=== PATIENT | male | born 1955 | race Caucasian/White ===

== ENCOUNTER → 2018-05-18 08:47 | Outpatient (CLI) | payer OTHER, SELFPAY ==
[2018-05-18 10:07] LABS: Add Manual Diff / Slide Review NO; Basophils Percent Auto 0.6 % (0-2); Eosinophils Percent Auto 3.6 % (2-4); Hematocrit 45.2 % (41-53); Hemoglobin 15.5 g/dL (13.5-17.5); Lymphocytes Percent Auto 29.7 % (25-40); Mean Corpuscular HGB Conc 34.4 % (30-36); Mean Corpuscular Hemoglobin 30.4 PG (26-34); Mean Corpuscular Volume 88.5 fL (80-100); Monocytes Percent Auto 10.4 % (3-14); Neutrophils Absolute Auto 2800 /uL (3000-5900); Neutrophils Percent Auto 55.7 % (50-75); Platelet Count 236 X10^3/uL (150-400); Red Cell Distribution Width 13.7 % (11.6-14.8)
[2018-05-18 10:15] LABS: Alanine Aminotransferase 39 IU/L (21-72); Albumin 4.4 g/dL (3.5-5.0); Albumin Globulin Ratio 1.3 (1.0-2.8); Alkaline Phosphatase 58 U/L (38-126); Aspartate Aminotransferase 32 IU/L (17-59); BUN Creatinine Ratio 19.2 (6-22); Bilirubin Total 0.8 mg/dL (0.2-1.3); Blood Urea Nitrogen 25 mg/dL (9-20); Calcium 9.5 mg/dL (8.4-10.2); Carbon Dioxide 35 mmol/L (22-32); Chloride 99 mmol/L (98-107); Cholesterol 239 mg/dL (140-199); Estimated Glomerular Filt Rate 55.6 mL/min (>60); Globulin 3.3 g/dL (1.7-4.1); Glucose 106 mg/dL (80-110); HDL Cholesterol 47 mg/dL (40-60); HEMOLYSIS < 15 (0-50); LDL Cholesterol Calculated 165 mg/dL (<100); Potassium 4.6 mmol/L (3.4-5.1); Sodium 143 mmol/L (137-145); Total Protein 7.7 g/dL (6.3-8.2); Triglycerides 133 mg/dL (35-150)
[2018-05-18 10:36] LABS: TSH w/ Reflex to FT4 2.61 uIU/mL (0.47-4.68)
[2018-05-18 10:40] LABS: Prostate Specific Antigen Scrn 1.61 ng/mL (0.1-4.0)
== END ==
PROVIDERS: Family Provider Family Medicine; PCP Family Medicine; Visit Provider Family Medicine
DX: E34.9 Endocrine disorder, unspecified (principal); E78.00 Pure hypercholesterolemia, unspecified; I10 Essential (primary) hypertension; Z12.5 Encounter for screening for malignant neoplasm of prostate
CPT/HCPCS: 36415; 80053; 80061; 84443; 85025; G0103

== ENCOUNTER → 2018-05-25 11:40 | Outpatient (CLI) | payer OTHER, SELFPAY | PROVIDERS: PCP Family Medicine; Visit Provider Family Medicine | DX: E34.9 Endocrine disorder, unspecified (principal) | CPT/HCPCS: 36415; 84403 ==

== ENCOUNTER 2018-12-01 09:00 | Outpatient (RCR) | payer MEDICARE, OTHER, SELFPAY ==
--- NOTE | 2018-11-02 17:00 | PT.OPPOC ---
Current Diagnoses Achilles tendinitis, left leg (11/02/18) Provider Visit Care Team Role Provider Type Russell Yancey MD Family Provider Physician Primary Care Provider Specialty: Family Practice Address: [address] [place] [address], [id number] Email: [email or web address] Debbie Krueger DPM Attending Provider Physician Specialty: Podiatry Address: [address] [place] [address], [id number] Email: [email or web address] PT-OP-T Assessment and Plan Start: 11/02/18 13:34 Freq: Status: Active Protocol: Document 11/02/18 13:36 EA (Rec: 11/02/18 13:42 EA [id number]) Physical Therapy Assessment Rehab Potential Rehabilitation Potential Good Evaluation Complexity Number of Personal Factors/Comorbidities 1-2 Number of Body Systems Impaired 1-2 Clinical Presentation at Evaluation Stable Impairments Impairments Activity Tolerance Gait Pain ROM Soft Tissue Mobility Strength Goals Four Impairment Impaired gait Senior Care Goal (LTG) Patient would show improved left push off to improve gait. LTG Duration 4 wks Three Impairment Foot Ankle Ability Measure ( FAAM) Dry Heat Cabinet Attendant Goal (LTG) FAAM score of > 65 LTG Duration 5 wks Two Impairment Lower extremity functional scale (LEFS) 62/80 Dry Heat Cabinet Attendant Goal (LTG) LEFS score of > 65 LTG Duration 5 wks One Impairment No HEP in place Senior Care Goal (LTG) Pt will demonstrate indep HEP. LTG Duration 4 wks Assessment Summary Assessment Pleasant 63 y/o F patient with a referring diagnosis of left achilles tendonitis. Today patient exhibited slight gait difficulty on even ground and steps descent due to pain on left foot. Assessment reveals tightness to both calves, tender to palpate at heel cord origin attachment, slight decreased of foot arch but corrected with the use of foot arch support. Patient's foot dysfunction limits his ability to perform activities that requires distance ambulation and stairs navigation, therefore, in my professional opinion patient would require skilled PT to improve function . Physical Therapy Plan Frequency and Duration Frequency of Treatment 2x/Week Duration of Treatment 8 wks Plan of Care Start Date 11/02/18 Plan of Care End Date 12/28/18 Therapeutic Interventions Therapeutic Interventions Home Exercise Program Joint Mobilizations Manual Therapy Patient/Caregiver Education Self-Care/Home Management Soft Tissue Mobilization Taping Therapeutic Exercises Modalities Cold Pack/Ice Massage Electric Stimulation Hot Packs Iontophoresis Ultrasound Next Visit Focus/Plan Next Note Type Treatment Note Next Visit Plan Provide HEP, decrease symptoms Plan of Care Dates Plan of Care Start Date 11/02/18 Plan of Care End Date 12/28/18 Please Sign and Return: I have reviewed this Plan of Care and certify that the skilled therapy services above are required to meet the patient?s needs. Physician Signature Date Printed Name and Credentials Clinical Instructor Signature Printed Name and Credentials
--- NOTE | 2018-11-02 17:00 | PT.OIE ---
Current Diagnoses Achilles tendinitis, left leg (11/02/18) Past Medical History (Last Updated 05/24/18 @ 16:01 by My Gómez) Chronic back pain (Chronic ~2004) Hypertension (Chronic ~2001) Kidney stones (Chronic) Shoulder pain (Chronic ~2003) Chicken pox (Resolved ~1964) Fractures (Resolved) Measles (Resolved ~1960) Mumps (Resolved ~1962) Past Surgical History (Last Updated 05/24/18 @ 16:01 by My Gómez) History of vasectomy (~1992) Provider Visit Care Team Role Provider Type Russell Yancey MD Family Provider Physician Primary Care Provider Specialty: Family Practice Address: [address] [place] [address], [address] Email: [email or web address] Debbie Krueger DPM Attending Provider Physician Specialty: Podiatry Address: [address] [place] [address], [phone] Email: [email or web address] Physical Therapy Initial Evaluation PT-OP-A Visit Information Start: 11/02/18 13:34 Freq: Status: Active Protocol: Document 11/02/18 13:36 EA (Rec: 11/02/18 13:42 EA [id number]) Out-Patient Physical Therapy Visit Information Visit Information Visit Type Initial Evaluation PT-OP-B Current Condition Start: 11/02/18 13:34 Freq: Status: Active Protocol: Document 11/02/18 17:00 EA (Rec: 11/03/18 07:36 EA [id number]) Current Condition History of Current Condition Onset Date September/2018 Current Complaints Left inner heel pain History of Current Condition Present complaint of left heel pain immediately occurred while in the last few minutes of long walk without history of injury. Patient reports did not use foot orthotics during that day in which he usually wear. He reports ICE and elevation was applied after that day but pain re- appeared in the the morning and feels decreased once mobilized. Pt went to his doctor with no X-ray no diagnostic imaging performed. Since then patient uses foot orthotics and places tensor support to calf area and feels it improves a bit. Prior Treatments and Tests None identified Future Testing and Treatments Planned None identified Treatment Goals Patient/Caregiver Goals Patient wants to completely eliminated pain. Prior Functional Status Baseline Function- ADL's Independent Baseline Function- Mobility Independent Baseline Function- Gait No limitation Baseline Function- Work/School Retired Baseline Function- Recreation/Hobbies Likes to walk on trails and flat ground Current Functional Impairments (Reported) Functional Limitations- ADL's Independent Functional Limitations- Mobility/Gait Limited with long distance ambulation and uneven surfaces Functional Limitations- Work/School Retired Functional Limitations- Recreation/ Unable to walk more than > 30 Hobbies minutes due to increased of pain PT-OP-C Subjective Start: 11/02/18 13:34 Freq: Status: Active Protocol: Document 11/02/18 17:00 EA (Rec: 11/03/18 07:36 EA [id number]) OP-PT Subjective Patient Comments Patient Comments Pt states would like to eliminate heel pain and back to normal mobility. Patient Reported Progress Improving Patient Questionnaires Foot & Ankle Ability Measure- ADL and Sports FAAM-ADL Score 60 FAAM-ADL Impairment 20 to 39% Impaired (Score 50- 66) Lower Extremity Functional Scale LEFS Score 62 LEFS Impairment 20 to 39% Impaired (Score 48- 62) OP-PT Pain Assessment Pain Assessment Grid Paper Pain Assessment Grid Completed Yes Location Left Lateral Heel Pain Location Details left heel cord Scale Used Numeric (1 - 10) Description Tender Tightness Frequency Intermittent Pain Aggravating Factors Activity Exercise Walking Stair Climbing Patient Stated Pain Goal 0 PT-OP-D Balance Start: 11/02/18 13:34 Freq: Status: Active Protocol: Document 11/02/18 17:00 EA (Rec: 11/03/18 07:36 EA [id number]) Balance Tests Single Limb Standing Single Limb- Right > 15 secs Single Limb- Left < 15 secs PT-OP-E Functional Tests Start: 11/02/18 13:34 Freq: Status: Active Protocol: Document 11/02/18 17:00 EA (Rec: 11/03/18 07:39 EA [id number]) Functional Tests Other 1 Name of Test Heels and toes walk Comment Mild difficulty with toe walks to left side PT-OP-G Mobility & Gait Start: 11/02/18 13:34 Freq: Status: Active Protocol: Document 11/02/18 17:00 EA (Rec: 11/03/18 07:36 EA [id number]) OP Gait Assessment Comments Gait Comments Very slight antalgic and decreased push off to left foot PT-OP-J Posture/Palpation/Skin Start: 11/02/18 13:34 Freq: Status: Active Protocol: Document 11/02/18 17:00 EA (Rec: 11/03/18 07:36 EA [id number]) Posture Evaluation Position Standing Ankle/Foot Posture (L) Pronated (L) Calcaneal Eversion Foot Arch (L) Medium Arch (R) Medium Arch Palpation Assessment Location One Palpation Location Left inner heel cor calcaneal attachment Palpation Findings Tenderness PT-OP-K Range of Motion Start: 11/02/18 13:34 Freq: Status: Active Protocol: Document 11/02/18 17:00 EA (Rec: 11/03/18 07:39 EA [id number]) Ankle and Foot Goniometric Range of Motion Ankle and Foot ROM Limitations ROM Limitations Soft Tissue Tightness Comments Moderate tightness to both calves PT-OP-L Special Tests Start: 11/02/18 13:34 Freq: Status: Active Protocol: Document 11/02/18 17:00 EA (Rec: 11/03/18 07:36 EA [id number]) Special Tests Foot/Ankle Special Tests Angelo Test Results - Talor Tilt Test Results - PT-OP-M Strength Start: 11/02/18 13:34 Freq: Status: Active Protocol: Document 11/02/18 17:00 EA (Rec: 11/03/18 07:36 EA [id number]) Ankle/Foot Strength Ankle and Foot Manual Muscle Testing Right Dorsiflexion (L4) 5 Normal Plantarflexion (S1) 5 Normal Inversion 5 Normal Eversion (S1) 5 Normal Comments Able to walk on heel and toes with no pain. Left Dorsiflexion (L4) 5 Normal Plantarflexion (S1) 4+ Good+ Inversion 5 Normal Eversion (S1) 5 Normal Comments Able to walk on heel and toes but increased in pain PT-OP-Q Treatments Start: 11/02/18 13:34 Freq: Status: Active Protocol: Document 11/02/18 13:36 EA (Rec: 11/02/18 13:42 EA [id number]) Manual Therapy Treatment Soft Tissue Mobilization 1 Body Location left lat AT Mobilization Type Cross-Friction Intensity/Depth Moderate Body Position Prone Self-Care/Home Management Treatment Education Patient Education Home Exercise Program Pain Management Caregiver Education Discussed activities progression. PT-OP-R Modalities Start: 11/02/18 13:34 Freq: Status: Active Protocol: Document 11/02/18 13:36 EA (Rec: 11/02/18 13:42 EA [id number]) Ultrasound Therapy Treatment Left Lower Posterior Foot Treatment Duration (minutes) 8 Patient Position Prone Coupling Medium Ultrasound Gel Frequency Setting (mHz) 3 Mode Setting Continuous Intensity Setting (w/cm2) 1 PT-OP-T Assessment and Plan Start: 11/02/18 13:34 Freq: Status: Active Protocol: Document 11/02/18 13:36 EA (Rec: 11/02/18 13:42 EA [id number]) Physical Therapy Assessment Rehab Potential Rehabilitation Potential Good Evaluation Complexity Number of Personal Factors/Comorbidities 1-2 Number of Body Systems Impaired 1-2 Clinical Presentation at Evaluation Stable Impairments Impairments Activity Tolerance Gait Pain ROM Soft Tissue Mobility Strength Goals Four Impairment Impaired gait Longterm Goal (LTG) Patient would show improved left push off to improve gait. LTG Duration 4 wks Three Impairment Foot Ankle Ability Measure ( FAAM) Drum Plater Goal (LTG) FAAM score of > 65 LTG Duration 5 wks Two Impairment Lower extremity functional scale (LEFS) 62/80 Longterm Goal (LTG) LEFS score of > 65 LTG Duration 5 wks One Impairment No HEP in place Longterm Goal (LTG) Pt will demonstrate indep HEP. LTG Duration 4 wks Assessment Summary Assessment Pleasant 63 y/o F patient with a referring diagnosis of left achilles tendonitis. Today patient exhibited slight gait difficulty on even ground and steps descent due to pain on left foot. Assessment reveals tightness to both calves, tender to palpate at heel cord origin attachment, slight decreased of foot arch but corrected with the use of foot arch support. Patient's foot dysfunction limits his ability to perform activities that requires distance ambulation and stairs navigation, therefore, in my professional opinion patient would require skilled PT to improve function . Physical Therapy Plan Frequency and Duration Frequency of Treatment 2x/Week Duration of Treatment 8 wks Plan of Care Start Date 11/02/18 Plan of Care End Date 12/28/18 Therapeutic Interventions Therapeutic Interventions Home Exercise Program Joint Mobilizations Manual Therapy Patient/Caregiver Education Self-Care/Home Management Soft Tissue Mobilization Taping Therapeutic Exercises Modalities Cold Pack/Ice Massage Electric Stimulation Hot Packs Iontophoresis Ultrasound Next Visit Focus/Plan Next Note Type Treatment Note Next Visit Plan Provide HEP, decrease symptoms
--- NOTE | 2018-11-12 10:41 | PT.OTN ---
Current Diagnoses Achilles tendinitis, left leg (11/12/18) Physical Therapy Treatment Note PT-OP-A Visit Information Start: 11/02/18 13:34 Freq: Status: Active Protocol: Document 11/12/18 10:32 EA (Rec: 11/12/18 10:41 EA [id number]) Out-Patient Physical Therapy Visit Information Visit Information Visit Type Treatment Note Visit Start Time 09:00 Visit Stop Time 09:53 Total Visit Minutes 53 Visit Number 2 PT-OP-B Current Condition Start: 11/02/18 13:34 Freq: Status: Active Protocol: Document 11/02/18 17:00 EA (Rec: 11/03/18 07:36 EA [id number]) Current Condition History of Current Condition Onset Date 1st week september/2018 Current Complaints Left inner heel pain History of Current Condition Present complaint of left heel pain immediately occurred while in the last few minutes of long walk without history of injury. Patient reports did not use foot orthotics during that day in which he usually wear. He reports ICE and elevation was applied after that day but pain re- appeared in the the morning and feels decreased once mobilized. Pt went to his doctor with no X-ray no diagnostic imaging performed. Since then patient uses foot orthotics and places tensor support to calf area and feels it improves a bit. Prior Treatments and Tests None identified Future Testing and Treatments Planned None identified Treatment Goals Patient/Caregiver Goals Patient wants to completely eliminated pain. Prior Functional Status Baseline Function- ADL's Independent Baseline Function- Mobility Independent Baseline Function- Gait No limitation Baseline Function- Work/School Retired Baseline Function- Recreation/Hobbies Likes to walk on trails and flat ground Current Functional Impairments (Reported) Functional Limitations- ADL's Independent Functional Limitations- Mobility/Gait Limited with long distance ambulation and uneven surfaces Functional Limitations- Work/School Retired Functional Limitations- Recreation/ Unable to walk more than > 30 Hobbies minutes due to increased of pain PT-OP-C Subjective Start: 11/02/18 13:34 Freq: Status: Active Protocol: Document 11/12/18 10:32 EA (Rec: 11/12/18 10:41 EA [id number]) OP-PT Subjective Patient Comments Patient Comments Pt reports left heel cord is sore after 40 mins of walk 2 days ago. PT-OP-D Balance Start: 11/02/18 13:34 Freq: Status: Active Protocol: Document 11/02/18 17:00 EA (Rec: 11/03/18 07:36 EA [id number]) Balance Tests Single Limb Standing Single Limb- Right > 15 secs Single Limb- Left < 15 secs PT-OP-E Functional Tests Start: 11/02/18 13:34 Freq: Status: Active Protocol: Document 11/02/18 17:00 EA (Rec: 11/03/18 07:39 EA [id number]) Functional Tests Other 1 Name of Test Heels and toes walk Comment Mild difficulty with toe walks to left side PT-OP-G Mobility & Gait Start: 11/02/18 13:34 Freq: Status: Active Protocol: Document 11/02/18 17:00 EA (Rec: 11/03/18 07:36 EA [id number]) OP Gait Assessment Comments Gait Comments Very slight antalgic and decreased push off to left foot PT-OP-J Posture/Palpation/Skin Start: 11/02/18 13:34 Freq: Status: Active Protocol: Document 11/02/18 17:00 EA (Rec: 11/03/18 07:36 EA [id number]) Posture Evaluation Position Standing Ankle/Foot Posture (L) Pronated (L) Calcaneal Eversion Foot Arch (L) Medium Arch (R) Medium Arch Palpation Assessment Location One Palpation Location Left inner heel cor calcaneal attachment Palpation Findings Tenderness PT-OP-K Range of Motion Start: 11/02/18 13:34 Freq: Status: Active Protocol: Document 11/02/18 17:00 EA (Rec: 11/03/18 07:39 EA [id number]) Ankle and Foot Goniometric Range of Motion Ankle and Foot ROM Limitations ROM Limitations Soft Tissue Tightness Comments Moderate tightness to both calves PT-OP-L Special Tests Start: 11/02/18 13:34 Freq: Status: Active Protocol: Document 11/02/18 17:00 EA (Rec: 11/03/18 07:36 EA [id number]) Special Tests Foot/Ankle Special Tests Angelo Test Results - Talor Tilt Test Results - PT-OP-M Strength Start: 11/02/18 13:34 Freq: Status: Active Protocol: Document 11/02/18 17:00 EA (Rec: 11/03/18 07:36 EA [id number]) Ankle/Foot Strength Ankle and Foot Manual Muscle Testing Right Dorsiflexion (L4) 5 Normal Plantarflexion (S1) 5 Normal Inversion 5 Normal Eversion (S1) 5 Normal Comments Able to walk on heel and toes with no pain. Left Dorsiflexion (L4) 5 Normal Plantarflexion (S1) 4+ Good+ Inversion 5 Normal Eversion (S1) 5 Normal Comments Able to walk on heel and toes but increased in pain PT-OP-Q Treatments Start: 11/02/18 13:34 Freq: Status: Active Protocol: Document 11/12/18 10:32 EA (Rec: 11/12/18 10:41 EA [id number]) Cardio Equipment Treadmill Duration (Minutes) 5 Speed 2-3.2 Other uphill/downhill Gym Equipment Shuttle Recovery Unilateral Heel Raises Resistance 25# Reps/Time x 15 reps Unilateral Squats Resistance 3 cords Reps/Time x 15 reps Therapeutic Exercises Other Exercises 2 Other Exercise Name 2-4 steps down and back Side left Reps/Minutes x 10 reps x 2 sets Comments no gand support 1 Other Exercise Name The GOLD (calves) Reps/Minutes x 30SH x 2 reps each Comments bent and straight knees Manual Therapy Treatment Soft Tissue Mobilization 2 Body Location calves Mobilization Type Myofascial Release Rolling Intensity/Depth Moderate Body Position Prone 1 Body Location left lat AT Mobilization Type Cross-Friction Intensity/Depth Moderate Body Position Prone PT-OP-R Modalities Start: 11/02/18 13:34 Freq: Status: Active Protocol: Document 11/12/18 10:32 EA (Rec: 11/12/18 10:41 EA [id number]) Hot Pack/Cold Pack Treatment Cold Pack Location left heel cord Treatment Duration (minutes) 15 Patient Tolerance Good Ultrasound Therapy Treatment Left Lower Posterior Foot Treatment Duration (minutes) 8 Patient Position Prone Coupling Medium Ultrasound Gel Frequency Setting (mHz) 3 Mode Setting Continuous Intensity Setting (w/cm2) 1 PT-OP-T Assessment and Plan Start: 11/02/18 13:34 Freq: Status: Active Protocol: Document 11/12/18 10:32 EA (Rec: 11/12/18 10:41 EA [id number]) Physical Therapy Assessment Assessment Summary Assessment Tolerated treatment with mild discomfort during STM. Recommends gait self correction. Physical Therapy Plan Next Visit Focus/Plan Next Note Type Treatment Note Next Visit Plan Cont with current plan
--- NOTE | 2018-11-17 10:14 | PT.OTN ---
Current Diagnoses Achilles tendinitis, left leg (11/17/18) Physical Therapy Treatment Note PT-OP-A Visit Information Start: 11/02/18 13:34 Freq: Status: Active Protocol: Document 11/17/18 10:04 EA (Rec: 11/17/18 10:13 EA [id number]) Out-Patient Physical Therapy Visit Information Visit Information Visit Type Treatment Note Visit Start Time 09:00 Visit Stop Time 09:53 Total Visit Minutes 53 Visit Number 3 PT-OP-B Current Condition Start: 11/02/18 13:34 Freq: Status: Active Protocol: Document 11/02/18 17:00 EA (Rec: 11/03/18 07:36 EA [id number]) Current Condition History of Current Condition Onset Date 1st week of September/2018 Current Complaints Left inner heel pain History of Current Condition Present complaint of left heel pain immediately occurred while in the last few minutes of long walk without history of injury. Patient reports did not use foot orthotics during that day in which he usually wear. He reports ICE and elevation was applied after that day but pain re- appeared in the the morning and feels decreased once mobilized. Pt went to his doctor with no X-ray no diagnostic imaging performed. Since then patient uses foot orthotics and places tensor support to calf area and feels it improves a bit. Prior Treatments and Tests None identified Future Testing and Treatments Planned None identified Treatment Goals Patient/Caregiver Goals Patient wants to completely eliminated pain. Prior Functional Status Baseline Function- ADL's Independent Baseline Function- Mobility Independent Baseline Function- Gait No limitation Baseline Function- Work/School Retired Baseline Function- Recreation/Hobbies Likes to walk on trails and flat ground Current Functional Impairments (Reported) Functional Limitations- ADL's Independent Functional Limitations- Mobility/Gait Limited with long distance ambulation and uneven surfaces Functional Limitations- Work/School Retired Functional Limitations- Recreation/ Unable to walk more than > 30 Hobbies minutes due to increased of pain PT-OP-C Subjective Start: 11/02/18 13:34 Freq: Status: Active Protocol: Document 11/17/18 10:04 EA (Rec: 11/17/18 10:13 EA [id number]) OP-PT Subjective Patient Comments Patient Comments Pt reports performed trail walk and states left foot seems to be okay; states over pronation of left foot. Patient Reported Progress Improving PT-OP-D Balance Start: 11/02/18 13:34 Freq: Status: Active Protocol: Document 11/02/18 17:00 EA (Rec: 11/03/18 07:36 EA [id number]) Balance Tests Single Limb Standing Single Limb- Right > 15 secs Single Limb- Left < 15 secs PT-OP-E Functional Tests Start: 11/02/18 13:34 Freq: Status: Active Protocol: Document 11/02/18 17:00 EA (Rec: 11/03/18 07:39 EA [id number]) Functional Tests Other 1 Name of Test Heels and toes walk Comment Mild difficulty with toe walks to left side PT-OP-G Mobility & Gait Start: 11/02/18 13:34 Freq: Status: Active Protocol: Document 11/02/18 17:00 EA (Rec: 11/03/18 07:36 EA [id number]) OP Gait Assessment Comments Gait Comments Very slight antalgic and decreased push off to left foot PT-OP-J Posture/Palpation/Skin Start: 11/02/18 13:34 Freq: Status: Active Protocol: Document 11/02/18 17:00 EA (Rec: 11/03/18 07:36 EA [id number]) Posture Evaluation Position Standing Ankle/Foot Posture (L) Pronated (L) Calcaneal Eversion Foot Arch (L) Medium Arch (R) Medium Arch Palpation Assessment Location One Palpation Location Left inner heel cor calcaneal attachment Palpation Findings Tenderness PT-OP-K Range of Motion Start: 11/02/18 13:34 Freq: Status: Active Protocol: Document 11/02/18 17:00 EA (Rec: 11/03/18 07:39 EA [id number]) Ankle and Foot Goniometric Range of Motion Ankle and Foot ROM Limitations ROM Limitations Soft Tissue Tightness Comments Moderate tightness to both calves PT-OP-L Special Tests Start: 11/02/18 13:34 Freq: Status: Active Protocol: Document 11/02/18 17:00 EA (Rec: 11/03/18 07:36 EA [id number]) Special Tests Foot/Ankle Special Tests Angelo Test Results - Talor Tilt Test Results - PT-OP-M Strength Start: 11/02/18 13:34 Freq: Status: Active Protocol: Document 11/02/18 17:00 EA (Rec: 11/03/18 07:36 EA [id number]) Ankle/Foot Strength Ankle and Foot Manual Muscle Testing Right Dorsiflexion (L4) 5 Normal Plantarflexion (S1) 5 Normal Inversion 5 Normal Eversion (S1) 5 Normal Comments Able to walk on heel and toes with no pain. Left Dorsiflexion (L4) 5 Normal Plantarflexion (S1) 4+ Good+ Inversion 5 Normal Eversion (S1) 5 Normal Comments Able to walk on heel and toes but increased in pain PT-OP-Q Treatments Start: 11/02/18 13:34 Freq: Status: Active Protocol: Document 11/17/18 10:04 EA (Rec: 11/17/18 10:13 EA [id number]) Gym Equipment Shuttle Recovery Unilateral Squats Resistance 3 cords Reps/Time x 15 reps Therapeutic Exercises Other Exercises 4 Other Exercise Name Stedy to forward lunges with single hand rail support Reps/Minutes x 6 repes each side x 2 sets 3 Other Exercise Name Stairs calf raises: straight and bent knees Reps/Minutes x 15 reps each Comments Double and single 2 Other Exercise Name 2-4 steps down and back Side left Reps/Minutes x 10 reps x 2 sets Comments no gand support 1 Other Exercise Name The GOLD (calves) Reps/Minutes x 30SH x 2 reps each Comments bent and straight knees Manual Therapy Treatment Soft Tissue Mobilization 2 Body Location calves Mobilization Type Myofascial Release Rolling Intensity/Depth Moderate Body Position Prone 1 Body Location left lat AT Mobilization Type Cross-Friction Intensity/Depth Moderate Body Position Prone Manual Techniques 1 Type Manual foot pronators stretch Reps/Duration x 30 secs hold x 4 reps PT-OP-R Modalities Start: 11/02/18 13:34 Freq: Status: Active Protocol: Document 11/17/18 10:04 EA (Rec: 11/17/18 10:13 EA [id number]) Ultrasound Therapy Treatment Left Lower Posterior Foot Treatment Duration (minutes) 8 Patient Position Prone Coupling Medium Ultrasound Gel Frequency Setting (mHz) 3 Mode Setting Continuous Intensity Setting (w/cm2) 1 PT-OP-T Assessment and Plan Start: 11/02/18 13:34 Freq: Status: Active Protocol: Document 11/17/18 10:04 EA (Rec: 11/17/18 10:13 EA [id number]) Physical Therapy Assessment Assessment Summary Assessment No discomfort noted during therex including single leg calf raises. Requires cues during steady lunges to ensure plantarflex eccentric contraction. Physical Therapy Plan Next Visit Focus/Plan Next Note Type Treatment Note Next Visit Plan Progress as tolerated
--- NOTE | 2018-11-19 12:19 | PT.OTN ---
Current Diagnoses Achilles tendinitis, left leg (11/19/18) Physical Therapy Treatment Note PT-OP-A Visit Information Start: 11/02/18 13:34 Freq: Status: Active Protocol: Document 11/19/18 12:15 EA (Rec: 11/19/18 12:19 EA [id number]) Out-Patient Physical Therapy Visit Information Visit Information Visit Type Treatment Note Visit Start Time 09:00 Visit Stop Time 09:53 Total Visit Minutes 53 Visit Number 4 PT-OP-B Current Condition Start: 11/02/18 13:34 Freq: Status: Active Protocol: Document 11/02/18 17:00 EA (Rec: 11/03/18 07:36 EA [id number]) Current Condition History of Current Condition Onset Date 1st week september/2018 Current Complaints Left inner heel pain History of Current Condition Present complaint of left heel pain immediately occurred while in the last few minutes of long walk without history of injury. Patient reports did not use foot orthotics during that day in which he usually wear. He reports ICE and elevation was applied after that day but pain re- appeared in the the morning and feels decreased once mobilized. Pt went to his doctor with no X-ray no diagnostic imaging performed. Since then patient uses foot orthotics and places tensor support to calf area and feels it improves a bit. Prior Treatments and Tests None identified Future Testing and Treatments Planned None identified Treatment Goals Patient/Caregiver Goals Patient wants to completely eliminated pain. Prior Functional Status Baseline Function- ADL's Independent Baseline Function- Mobility Independent Baseline Function- Gait No limitation Baseline Function- Work/School Retired Baseline Function- Recreation/Hobbies Likes to walk on trails and flat ground Current Functional Impairments (Reported) Functional Limitations- ADL's Independent Functional Limitations- Mobility/Gait Limited with long distance ambulation and uneven surfaces Functional Limitations- Work/School Retired Functional Limitations- Recreation/ Unable to walk more than > 30 Hobbies minutes due to increased of pain PT-OP-C Subjective Start: 11/02/18 13:34 Freq: Status: Active Protocol: Document 11/19/18 12:15 EA (Rec: 11/19/18 12:19 EA [id number]) OP-PT Subjective Patient Comments Patient Comments Pt reports able to perform HEP yesterday; states less dicomfort in the morning at this time. Patient Reported Progress Improving PT-OP-D Balance Start: 11/02/18 13:34 Freq: Status: Active Protocol: Document 11/02/18 17:00 EA (Rec: 11/03/18 07:36 EA [id number]) Balance Tests Single Limb Standing Single Limb- Right > 15 secs Single Limb- Left < 15 secs PT-OP-E Functional Tests Start: 11/02/18 13:34 Freq: Status: Active Protocol: Document 11/02/18 17:00 EA (Rec: 11/03/18 07:39 EA [id number]) Functional Tests Other 1 Name of Test Heels and toes walk Comment Mild difficulty with toe walks to left side PT-OP-G Mobility & Gait Start: 11/02/18 13:34 Freq: Status: Active Protocol: Document 11/02/18 17:00 EA (Rec: 11/03/18 07:36 EA [id number]) OP Gait Assessment Comments Gait Comments Very slight antalgic and decreased push off to left foot PT-OP-J Posture/Palpation/Skin Start: 11/02/18 13:34 Freq: Status: Active Protocol: Document 11/02/18 17:00 EA (Rec: 11/03/18 07:36 EA [id number]) Posture Evaluation Position Standing Ankle/Foot Posture (L) Pronated (L) Calcaneal Eversion Foot Arch (L) Medium Arch (R) Medium Arch Palpation Assessment Location One Palpation Location Left inner heel cor calcaneal attachment Palpation Findings Tenderness PT-OP-K Range of Motion Start: 11/02/18 13:34 Freq: Status: Active Protocol: Document 11/02/18 17:00 EA (Rec: 11/03/18 07:39 EA [id number]) Ankle and Foot Goniometric Range of Motion Ankle and Foot ROM Limitations ROM Limitations Soft Tissue Tightness Comments Moderate tightness to both calves PT-OP-L Special Tests Start: 11/02/18 13:34 Freq: Status: Active Protocol: Document 11/02/18 17:00 EA (Rec: 11/03/18 07:36 EA [id number]) Special Tests Foot/Ankle Special Tests Angelo Test Results - Talor Tilt Test Results - PT-OP-M Strength Start: 11/02/18 13:34 Freq: Status: Active Protocol: Document 11/02/18 17:00 EA (Rec: 11/03/18 07:36 EA [id number]) Ankle/Foot Strength Ankle and Foot Manual Muscle Testing Right Dorsiflexion (L4) 5 Normal Plantarflexion (S1) 5 Normal Inversion 5 Normal Eversion (S1) 5 Normal Comments Able to walk on heel and toes with no pain. Left Dorsiflexion (L4) 5 Normal Plantarflexion (S1) 4+ Good+ Inversion 5 Normal Eversion (S1) 5 Normal Comments Able to walk on heel and toes but increased in pain PT-OP-Q Treatments Start: 11/02/18 13:34 Freq: Status: Active Protocol: Document 11/19/18 12:15 EA (Rec: 11/19/18 12:19 EA [id number]) Therapeutic Exercises Other Exercises 5 Other Exercise Name Cable sit to stand row Resistance 20# Reps/Minutes x12 reps x 2 4 Other Exercise Name Stedy to forward lunges with single hand rail support Reps/Minutes x 6 repes each side x 2 sets 3 Other Exercise Name Stairs calf raises: straight and bent knees Reps/Minutes x 15 reps each Comments Double and single 2 Other Exercise Name 2-4 steps down and back Side left Reps/Minutes x 10 reps x 2 sets Comments no gand support 1 Other Exercise Name The GOLD (calves) Reps/Minutes x 30SH x 2 reps each Comments bent and straight knees Manual Therapy Treatment Soft Tissue Mobilization 2 Body Location calves Mobilization Type Myofascial Release Rolling Intensity/Depth Moderate Body Position Prone 1 Body Location left lat AT Mobilization Type Cross-Friction Intensity/Depth Moderate Body Position Prone PT-OP-R Modalities Start: 11/02/18 13:34 Freq: Status: Active Protocol: Document 11/19/18 12:15 EA (Rec: 11/19/18 12:19 EA [id number]) Hot Pack/Cold Pack Treatment Cold Pack Location left heel cord Treatment Duration (minutes) 15 Patient Tolerance Good Ultrasound Therapy Treatment Left Lower Posterior Foot Treatment Duration (minutes) 8 Patient Position Prone Coupling Medium Ultrasound Gel Frequency Setting (mHz) 3 Mode Setting Continuous Intensity Setting (w/cm2) 1 PT-OP-T Assessment and Plan Start: 11/02/18 13:34 Freq: Status: Active Protocol: Document 11/19/18 12:15 EA (Rec: 11/19/18 12:19 EA [id number]) Physical Therapy Assessment Assessment Summary Assessment Pt continued to progress as to symptoms and functional mobility.1 Physical Therapy Plan Next Visit Focus/Plan Next Note Type Treatment Note Next Visit Plan advance as tolerated
--- NOTE | 2018-11-24 10:27 | PT.OTN ---
Current Diagnoses Achilles tendinitis, left leg (11/24/18) Physical Therapy Treatment Note PT-OP-A Visit Information Start: 11/02/18 13:34 Freq: Status: Active Protocol: Document 11/24/18 09:08 EA (Rec: 11/24/18 09:46 EA [id number]) Out-Patient Physical Therapy Visit Information Visit Information Visit Type Treatment Note Visit Start Time 09:00 Visit Stop Time 09:53 Total Visit Minutes 55 Visit Number 5 PT-OP-B Current Condition Start: 11/02/18 13:34 Freq: Status: Active Protocol: Document 11/02/18 17:00 EA (Rec: 11/03/18 07:36 EA [id number]) Current Condition History of Current Condition Onset Date 1st week september/2018 Current Complaints Left inner heel pain History of Current Condition Present complaint of left heel pain immediately occurred while in the last few minutes of long walk without history of injury. Patient reports did not use foot orthotics during that day in which he usually wear. He reports ICE and elevation was applied after that day but pain re- appeared in the the morning and feels decreased once mobilized. Pt went to his doctor with no X-ray no diagnostic imaging performed. Since then patient uses foot orthotics and places tensor support to calf area and feels it improves a bit. Prior Treatments and Tests None identified Future Testing and Treatments Planned None identified Treatment Goals Patient/Caregiver Goals Patient wants to completely eliminated pain. Prior Functional Status Baseline Function- ADL's Independent Baseline Function- Mobility Independent Baseline Function- Gait No limitation Baseline Function- Work/School Retired Baseline Function- Recreation/Hobbies Likes to walk on trails and flat ground Current Functional Impairments (Reported) Functional Limitations- ADL's Independent Functional Limitations- Mobility/Gait Limited with long distance ambulation and uneven surfaces Functional Limitations- Work/School Retired Functional Limitations- Recreation/ Unable to walk more than > 30 Hobbies minutes due to increased of pain PT-OP-C Subjective Start: 11/02/18 13:34 Freq: Status: Active Protocol: Document 11/24/18 09:08 EA (Rec: 11/24/18 09:46 EA [id number]) OP-PT Subjective Patient Comments Patient Comments My left heel is much feeling better;states right heel cord aggravted yesterday after miving stuff at home. Patient Reported Progress Improving PT-OP-D Balance Start: 11/02/18 13:34 Freq: Status: Active Protocol: Document 11/02/18 17:00 EA (Rec: 11/03/18 07:36 EA [id number]) Balance Tests Single Limb Standing Single Limb- Right > 15 secs Single Limb- Left < 15 secs PT-OP-E Functional Tests Start: 11/02/18 13:34 Freq: Status: Active Protocol: Document 11/02/18 17:00 EA (Rec: 11/03/18 07:39 EA [id number]) Functional Tests Other 1 Name of Test Heels and toes walk Comment Mild difficulty with toe walks to left side PT-OP-G Mobility & Gait Start: 11/02/18 13:34 Freq: Status: Active Protocol: Document 11/02/18 17:00 EA (Rec: 11/03/18 07:36 EA [id number]) OP Gait Assessment Comments Gait Comments Very slight antalgic and decreased push off to left foot PT-OP-J Posture/Palpation/Skin Start: 11/02/18 13:34 Freq: Status: Active Protocol: Document 11/02/18 17:00 EA (Rec: 11/03/18 07:36 EA [id number]) Posture Evaluation Position Standing Ankle/Foot Posture (L) Pronated (L) Calcaneal Eversion Foot Arch (L) Medium Arch (R) Medium Arch Palpation Assessment Location One Palpation Location Left inner heel cor calcaneal attachment Palpation Findings Tenderness PT-OP-K Range of Motion Start: 11/02/18 13:34 Freq: Status: Active Protocol: Document 11/02/18 17:00 EA (Rec: 11/03/18 07:39 EA [id number]) Ankle and Foot Goniometric Range of Motion Ankle and Foot ROM Limitations ROM Limitations Soft Tissue Tightness Comments Moderate tightness to both calves PT-OP-L Special Tests Start: 11/02/18 13:34 Freq: Status: Active Protocol: Document 11/02/18 17:00 EA (Rec: 11/03/18 07:36 EA [id number]) Special Tests Foot/Ankle Special Tests Angelo Test Results - Talor Tilt Test Results - PT-OP-M Strength Start: 11/02/18 13:34 Freq: Status: Active Protocol: Document 11/02/18 17:00 EA (Rec: 11/03/18 07:36 EA [id number]) Ankle/Foot Strength Ankle and Foot Manual Muscle Testing Right Dorsiflexion (L4) 5 Normal Plantarflexion (S1) 5 Normal Inversion 5 Normal Eversion (S1) 5 Normal Comments Able to walk on heel and toes with no pain. Left Dorsiflexion (L4) 5 Normal Plantarflexion (S1) 4+ Good+ Inversion 5 Normal Eversion (S1) 5 Normal Comments Able to walk on heel and toes but increased in pain PT-OP-Q Treatments Start: 11/02/18 13:34 Freq: Status: Active Protocol: Document 11/24/18 09:08 EA (Rec: 11/24/18 09:46 EA [id number]) Gym Equipment Shuttle Recovery Unilateral Heel Raises Resistance 25# Reps/Time x 15 reps Unilateral Squats Resistance 4 cords Reps/Time x 15 reps Therapeutic Exercises Other Exercises 7 Other Exercise Name SLS on blue foam Side bilateral Reps/Minutes x 10 secs x 3 reps 6 Other Exercise Name stauirs, quads and hamstring stretch on both sides Reps/Minutes x15SH x 2 reps 5 Other Exercise Name Cable sit to stand row Resistance 25# Reps/Minutes x12 reps x 2 4 Other Exercise Name Stedy to forward lunges with single hand rail support Reps/Minutes x 6 reps ea/ch side x 2 sets 3 Other Exercise Name Stairs calf raises: straight and bent knees Reps/Minutes x 15 reps each Comments Double and single 2 Other Exercise Name 2-4 steps down and back Side left Reps/Minutes x 10 reps x 2 sets Comments no gand support 1 Other Exercise Name The GOLD (calves) Reps/Minutes x 30SH x 2 reps each Comments bent and straight knees Manual Therapy Treatment Soft Tissue Mobilization 2 Body Location both calves Mobilization Type Myofascial Release Rolling Intensity/Depth Moderate Body Position Prone Comments to start and end with effleurage technique. 1 Body Location left and right lat AT Mobilization Type Cross-Friction Intensity/Depth Moderate Body Position Prone PT-OP-R Modalities Start: 11/02/18 13:34 Freq: Status: Active Protocol: Document 11/24/18 09:08 EA (Rec: 11/24/18 09:46 EA [id number]) Hot Pack/Cold Pack Treatment Cold Pack Location both heel cord Treatment Duration (minutes) 15 Patient Tolerance Good Ultrasound Therapy Treatment Left Lower Posterior Foot Treatment Duration (minutes) 8 Patient Position Prone Coupling Medium Ultrasound Gel Frequency Setting (mHz) 3 Mode Setting Continuous Intensity Setting (w/cm2) 1 PT-OP-T Assessment and Plan Start: 11/02/18 13:34 Freq: Status: Active Protocol: Document 11/24/18 09:49 EA (Rec: 11/24/18 09:50 EA [id number]) Physical Therapy Assessment Assessment Summary Assessment Improved mobility and gait with no signs of discomfort during therex. Patient is progressing well. Recommended to see after a week, otherwise come back after 2 days if symptoms persists. Physical Therapy Plan Next Visit Focus/Plan Next Note Type Treatment Note Next Visit Plan Advance as tolerated
--- NOTE | 2018-12-01 12:11 | PT.OTN ---
Current Diagnoses Achilles tendinitis, left leg (12/01/18) Physical Therapy Treatment Note PT-OP-A Visit Information Start: 11/02/18 13:34 Freq: Status: Active Protocol: Document 12/01/18 11:09 EA (Rec: 12/01/18 11:15 EA [id number]) Out-Patient Physical Therapy Visit Information Visit Information Visit Type Treatment Note Visit Start Time 09:00 Visit Stop Time 09:53 Total Visit Minutes 53 Visit Number 6 PT-OP-B Current Condition Start: 11/02/18 13:34 Freq: Status: Active Protocol: Document 11/02/18 17:00 EA (Rec: 11/03/18 07:36 EA [id number]) Current Condition History of Current Condition Onset Date 1st week september/2018 Current Complaints Left inner heel pain History of Current Condition Present complaint of left heel pain immediately occurred while in the last few minutes of long walk without history of injury. Patient reports did not use foot orthotics during that day in which he usually wear. He reports ICE and elevation was applied after that day but pain re- appeared in the the morning and feels decreased once mobilized. Pt went to his doctor with no X-ray no diagnostic imaging performed. Since then patient uses foot orthotics and places tensor support to calf area and feels it improves a bit. Prior Treatments and Tests None identified Future Testing and Treatments Planned None identified Treatment Goals Patient/Caregiver Goals Patient wants to completely eliminated pain. Prior Functional Status Baseline Function- ADL's Independent Baseline Function- Mobility Independent Baseline Function- Gait No limitation Baseline Function- Work/School Retired Baseline Function- Recreation/Hobbies Likes to walk on trails and flat ground Current Functional Impairments (Reported) Functional Limitations- ADL's Independent Functional Limitations- Mobility/Gait Limited with long distance ambulation and uneven surfaces Functional Limitations- Work/School Retired Functional Limitations- Recreation/ Unable to walk more than > 30 Hobbies minutes due to increased of pain PT-OP-C Subjective Start: 11/02/18 13:34 Freq: Status: Active Protocol: Document 12/01/18 11:09 EA (Rec: 12/01/18 11:15 EA [id number]) OP-PT Subjective Patient Comments Patient Comments Pt reports left heel is getting much better; states right heel is quite sore after moving home furniture. Patient Reported Progress Improving PT-OP-D Balance Start: 11/02/18 13:34 Freq: Status: Active Protocol: Document 11/02/18 17:00 EA (Rec: 11/03/18 07:36 EA [id number]) Balance Tests Single Limb Standing Single Limb- Right > 15 secs Single Limb- Left < 15 secs PT-OP-E Functional Tests Start: 11/02/18 13:34 Freq: Status: Active Protocol: Document 11/02/18 17:00 EA (Rec: 11/03/18 07:39 EA [id number]) Functional Tests Other 1 Name of Test Heels and toes walk Comment Mild difficulty with toe walks to left side PT-OP-G Mobility & Gait Start: 11/02/18 13:34 Freq: Status: Active Protocol: Document 11/02/18 17:00 EA (Rec: 11/03/18 07:36 EA [id number]) OP Gait Assessment Comments Gait Comments Very slight antalgic and decreased push off to left foot PT-OP-J Posture/Palpation/Skin Start: 11/02/18 13:34 Freq: Status: Active Protocol: Document 11/02/18 17:00 EA (Rec: 11/03/18 07:36 EA [id number]) Posture Evaluation Position Standing Ankle/Foot Posture (L) Pronated (L) Calcaneal Eversion Foot Arch (L) Medium Arch (R) Medium Arch Palpation Assessment Location One Palpation Location Left inner heel cor calcaneal attachment Palpation Findings Tenderness PT-OP-K Range of Motion Start: 11/02/18 13:34 Freq: Status: Active Protocol: Document 11/02/18 17:00 EA (Rec: 11/03/18 07:39 EA [id number]) Ankle and Foot Goniometric Range of Motion Ankle and Foot ROM Limitations ROM Limitations Soft Tissue Tightness Comments Moderate tightness to both calves PT-OP-L Special Tests Start: 11/02/18 13:34 Freq: Status: Active Protocol: Document 11/02/18 17:00 EA (Rec: 11/03/18 07:36 EA [id number]) Special Tests Foot/Ankle Special Tests Angelo Test Results - Talor Tilt Test Results - PT-OP-M Strength Start: 11/02/18 13:34 Freq: Status: Active Protocol: Document 11/02/18 17:00 EA (Rec: 11/03/18 07:36 EA [id number]) Ankle/Foot Strength Ankle and Foot Manual Muscle Testing Right Dorsiflexion (L4) 5 Normal Plantarflexion (S1) 5 Normal Inversion 5 Normal Eversion (S1) 5 Normal Comments Able to walk on heel and toes with no pain. Left Dorsiflexion (L4) 5 Normal Plantarflexion (S1) 4+ Good+ Inversion 5 Normal Eversion (S1) 5 Normal Comments Able to walk on heel and toes but increased in pain PT-OP-Q Treatments Start: 11/02/18 13:34 Freq: Status: Active Protocol: Document 12/01/18 11:09 EA (Rec: 12/01/18 11:15 EA [id number]) Cardio Equipment Bicycle (Upright) Duration (Minutes) 5 Resistance 5 Therapeutic Exercises Standing Exercises 1 Standing Exercise Name BUSO Fwd/BWD tilt Reps/Minutes x 30 secs x2 Other Exercises 7 Other Exercise Name SLS on blue foam Side bilateral Reps/Minutes x 10 secs x 3 reps 6 Other Exercise Name stauirs, quads and hamstring stretch on both sides Reps/Minutes x15SH x 2 reps 5 Other Exercise Name Cable sit to stand row Resistance 25# Reps/Minutes x12 reps x 2 4 Other Exercise Name Stedy to forward lunges with single hand rail support Reps/Minutes x 6 reps ea/ch side x 2 sets 3 Other Exercise Name Stairs calf raises: straight and bent knees Reps/Minutes x 15 reps each Comments Double and single 2 Other Exercise Name 6-8 steps down and back Side left Reps/Minutes x 10 reps x 2 sets Comments no gand support 1 Other Exercise Name The GOLD (calves) Reps/Minutes x 30SH x 2 reps each Comments bent and straight knees Manual Therapy Treatment Soft Tissue Mobilization 2 Body Location both calves Mobilization Type Myofascial Release Rolling Intensity/Depth Moderate Body Position Prone Comments to start and end with effleurage technique. 1 Body Location left and right lat AT Mobilization Type Cross-Friction Intensity/Depth Moderate Body Position Prone PT-OP-R Modalities Start: 11/02/18 13:34 Freq: Status: Active Protocol: Document 12/01/18 11:09 EA (Rec: 12/01/18 11:15 EA [id number]) Hot Pack/Cold Pack Treatment Cold Pack Location both heel cord Treatment Duration (minutes) 15 Patient Tolerance Good Ultrasound Therapy Treatment Left Lower Posterior Foot Treatment Duration (minutes) 8 Patient Position Prone Coupling Medium Ultrasound Gel Frequency Setting (mHz) 3 Mode Setting Continuous Intensity Setting (w/cm2) 1 PT-OP-T Assessment and Plan Start: 11/02/18 13:34 Freq: Status: Active Protocol: Document 12/01/18 11:09 XANDER (Rec: 12/01/18 11:15 XANDER [id number]) Physical Therapy Assessment Assessment Summary Assessment Pt tolerated treatment with no discomfort during therex except with minimal difficulty with stair 8 step down and up. Patient agreeable to to comply with HEP and is okay to be seen after 2 weeks. Physical Therapy Plan Next Visit Focus/Plan Next Note Type Treatment Note Next Visit Plan Discharge to advance HEP if no more complaint.
--- NOTE | 2018-12-18 09:20 | PT.OPDS ---
Current Diagnoses Achilles tendinitis, left leg (12/01/18) Provider Visit Care Team Role Provider Type Russell Yancey MD Family Provider Physician Primary Care Provider Specialty: Family Practice Address: [facility] [place], [address] Email: [email or web address] Debbie Krueger DPM Attending Provider Physician Specialty: Podiatry Address: [address] [place] [address], [id number] Email: [email or web address] Visit Number Visit Number 6 Discharge Summary PT-OP-B Current Condition Start: 11/02/18 13:34 Freq: Status: Active Protocol: Document 11/02/18 17:00 EA (Rec: 11/03/18 07:36 EA [id number]) Current Condition History of Current Condition Onset Date week of September/2018 Current Complaints Left inner heel pain History of Current Condition Present complaint of left heel pain immediately occurred while in the last few minutes of long walk without history of injury. Patient reports did not use foot orthotics during that day in which he usually wear. He reports ICE and elevation was applied after that day but pain re- appeared in the the morning and feels decreased once mobilized. Pt went to his doctor with no X-ray no diagnostic imaging performed. Since then patient uses foot orthotics and places tensor support to calf area and feels it improves a bit. Prior Treatments and Tests None identified Future Testing and Treatments Planned None identified Treatment Goals Patient/Caregiver Goals Patient wants to completely eliminated pain. Prior Functional Status Baseline Function- ADL's Independent Baseline Function- Mobility Independent Baseline Function- Gait No limitation Baseline Function- Work/School Retired Baseline Function- Recreation/Hobbies Likes to walk on trails and flat ground Current Functional Impairments (Reported) Functional Limitations- ADL's Independent Functional Limitations- Mobility/Gait Limited with long distance ambulation and uneven surfaces Functional Limitations- Work/School Retired Functional Limitations- Recreation/ Unable to walk more than > 30 Hobbies minutes due to increased of pain PT-OP-C Subjective Start: 11/02/18 13:34 Freq: Status: Active Protocol: Document 12/08/18 09:11 EA (Rec: 01/25/19 09:18 EA [id number]) OP-PT Subjective Patient Comments Patient Comments As per switchboard receptionist; patient called and cancelled all apointments on 12/07/18 statting that he is feels better and would like to be discharged to PT. Patient Reported Progress Improving PT-OP-D Balance Start: 11/02/18 13:34 Freq: Status: Active Protocol: Document 11/02/18 17:00 EA (Rec: 11/03/18 07:36 EA [id number]) Balance Tests Single Limb Standing Single Limb- Right > 15 secs Single Limb- Left < 15 secs PT-OP-E Functional Tests Start: 11/02/18 13:34 Freq: Status: Active Protocol: Document 11/02/18 17:00 EA (Rec: 11/03/18 07:39 EA [id number]) Functional Tests Other 1 Name of Test Heels and toes walk Comment Mild difficulty with toe walks to left side PT-OP-G Mobility & Gait Start: 11/02/18 13:34 Freq: Status: Active Protocol: Document 11/02/18 17:00 EA (Rec: 11/03/18 07:36 EA [id number]) OP Gait Assessment Comments Gait Comments Very slight antalgic and decreased push off to left foot PT-OP-J Posture/Palpation/Skin Start: 11/02/18 13:34 Freq: Status: Active Protocol: Document 11/02/18 17:00 EA (Rec: 11/03/18 07:36 EA [id number]) Posture Evaluation Position Standing Ankle/Foot Posture (L) Pronated (L) Calcaneal Eversion Foot Arch (L) Medium Arch (R) Medium Arch Palpation Assessment Location One Palpation Location Left inner heel cor calcaneal attachment Palpation Findings Tenderness PT-OP-K Range of Motion Start: 11/02/18 13:34 Freq: Status: Active Protocol: Document 11/02/18 17:00 EA (Rec: 11/03/18 07:39 EA [id number]) Ankle and Foot Goniometric Range of Motion Ankle and Foot ROM Limitations ROM Limitations Soft Tissue Tightness Comments Moderate tightness to both calves PT-OP-L Special Tests Start: 11/02/18 13:34 Freq: Status: Active Protocol: Document 11/02/18 17:00 EA (Rec: 11/03/18 07:36 EA [id number]) Special Tests Foot/Ankle Special Tests Angelo Test Results - Talor Tilt Test Results - PT-OP-M Strength Start: 11/02/18 13:34 Freq: Status: Active Protocol: Document 11/02/18 17:00 EA (Rec: 11/03/18 07:36 EA [id number]) Ankle/Foot Strength Ankle and Foot Manual Muscle Testing Right Dorsiflexion (L4) 5 Normal Plantarflexion (S1) 5 Normal Inversion 5 Normal Eversion (S1) 5 Normal Comments Able to walk on heel and toes with no pain. Left Dorsiflexion (L4) 5 Normal Plantarflexion (S1) 4+ Good+ Inversion 5 Normal Eversion (S1) 5 Normal Comments Able to walk on heel and toes but increased in pain PT-OP-T Assessment and Plan Start: 11/02/18 13:34 Freq: Status: Active Protocol: Document 12/08/18 09:11 EA (Rec: 01/25/19 09:18 EA [id number]) Physical Therapy Assessment Assessment Summary Assessment Patient is discharge upon request. Physical Therapy Plan Discharge Physical Therapy Discharge Reasons Patient Request
--- NOTE | 2019-01-25 09:19 | PT.OPDS ---
Current Diagnoses Achilles tendinitis, left leg (12/01/18) Provider Visit Care Team Role Provider Type Russell Yancey MD Family Provider Physician Primary Care Provider Specialty: Family Practice Address: [facility] [place], [address] Email: [email or web address] Debbie Krueger DPM Attending Provider Physician Specialty: Podiatry Address: [address] [place] [address], [address] Email: [email or web address] Visit Number Visit Number 6 Discharge Summary PT-OP-B Current Condition Start: 11/02/18 13:34 Freq: Status: Active Protocol: Document 11/02/18 17:00 EA (Rec: 11/03/18 07:36 EA [id number]) Current Condition History of Current Condition Onset Date week of September/2018 Current Complaints Left inner heel pain History of Current Condition Present complaint of left heel pain immediately occurred while in the last few minutes of long walk without history of injury. Patient reports did not use foot orthotics during that day in which he usually wear. He reports ICE and elevation was applied after that day but pain re- appeared in the the morning and feels decreased once mobilized. Pt went to his doctor with no X-ray no diagnostic imaging performed. Since then patient uses foot orthotics and places tensor support to calf area and feels it improves a bit. Prior Treatments and Tests None identified Future Testing and Treatments Planned None identified Treatment Goals Patient/Caregiver Goals Patient wants to completely eliminated pain. Prior Functional Status Baseline Function- ADL's Independent Baseline Function- Mobility Independent Baseline Function- Gait No limitation Baseline Function- Work/School Retired Baseline Function- Recreation/Hobbies Likes to walk on trails and flat ground Current Functional Impairments (Reported) Functional Limitations- ADL's Independent Functional Limitations- Mobility/Gait Limited with long distance ambulation and uneven surfaces Functional Limitations- Work/School Retired Functional Limitations- Recreation/ Unable to walk more than > 30 Hobbies minutes due to increased of pain PT-OP-C Subjective Start: 11/02/18 13:34 Freq: Status: Active Protocol: Document 12/08/18 09:11 EA (Rec: 01/25/19 09:18 EA [id number]) OP-PT Subjective Patient Comments Patient Comments As per manager strategy; patient called and cancelled all apointments on 12/07/18 statting that he is feels better and would like to be discharged to PT. Patient Reported Progress Improving PT-OP-D Balance Start: 11/02/18 13:34 Freq: Status: Active Protocol: Document 11/02/18 17:00 EA (Rec: 11/03/18 07:36 EA [id number]) Balance Tests Single Limb Standing Single Limb- Right > 15 secs Single Limb- Left < 15 secs PT-OP-E Functional Tests Start: 11/02/18 13:34 Freq: Status: Active Protocol: Document 11/02/18 17:00 EA (Rec: 11/03/18 07:39 EA [id number]) Functional Tests Other 1 Name of Test Heels and toes walk Comment Mild difficulty with toe walks to left side PT-OP-G Mobility & Gait Start: 11/02/18 13:34 Freq: Status: Active Protocol: Document 11/02/18 17:00 EA (Rec: 11/03/18 07:36 EA [id number]) OP Gait Assessment Comments Gait Comments Very slight antalgic and decreased push off to left foot PT-OP-J Posture/Palpation/Skin Start: 11/02/18 13:34 Freq: Status: Active Protocol: Document 11/02/18 17:00 EA (Rec: 11/03/18 07:36 EA [id number]) Posture Evaluation Position Standing Ankle/Foot Posture (L) Pronated (L) Calcaneal Eversion Foot Arch (L) Medium Arch (R) Medium Arch Palpation Assessment Location One Palpation Location Left inner heel cor calcaneal attachment Palpation Findings Tenderness PT-OP-K Range of Motion Start: 11/02/18 13:34 Freq: Status: Active Protocol: Document 11/02/18 17:00 EA (Rec: 11/03/18 07:39 EA [id number]) Ankle and Foot Goniometric Range of Motion Ankle and Foot ROM Limitations ROM Limitations Soft Tissue Tightness Comments Moderate tightness to both calves PT-OP-L Special Tests Start: 11/02/18 13:34 Freq: Status: Active Protocol: Document 11/02/18 17:00 EA (Rec: 11/03/18 07:36 EA [id number]) Special Tests Foot/Ankle Special Tests Angelo Test Results - Talor Tilt Test Results - PT-OP-M Strength Start: 11/02/18 13:34 Freq: Status: Active Protocol: Document 11/02/18 17:00 EA (Rec: 11/03/18 07:36 EA [id number]) Ankle/Foot Strength Ankle and Foot Manual Muscle Testing Right Dorsiflexion (L4) 5 Normal Plantarflexion (S1) 5 Normal Inversion 5 Normal Eversion (S1) 5 Normal Comments Able to walk on heel and toes with no pain. Left Dorsiflexion (L4) 5 Normal Plantarflexion (S1) 4+ Good+ Inversion 5 Normal Eversion (S1) 5 Normal Comments Able to walk on heel and toes but increased in pain PT-OP-T Assessment and Plan Start: 11/02/18 13:34 Freq: Status: Active Protocol: Document 12/08/18 09:11 EA (Rec: 01/25/19 09:18 EA [id number]) Physical Therapy Assessment Assessment Summary Assessment Patient is discharge upon request. Physical Therapy Plan Discharge Physical Therapy Discharge Reasons Patient Request
== END 2019-01-25 09:40 | disposition home or self-care (01) ==
LOC: PHYS 09:00
PROVIDERS: Family Provider Family Medicine; PCP Family Medicine; Visit Provider Podiatrist
DX: M76.62 Achilles tendinitis, left leg (principal)
CPT/HCPCS: 97010; 97035; 97110; 97140; 97161; 97535

== ENCOUNTER → 2019-07-06 08:12 | Outpatient (CLI) | payer MEDICARE, OTHER, SELFPAY ==
[2019-07-06 09:23] LABS: Add Manual Diff / Slide Review NO; Basophils Absolute Auto 0 /uL (0-100); Basophils Percent Auto 0.8 % (0-2); Eosinophils Absolute Auto 300 /uL (0-450); Eosinophils Percent Auto 5.9 % (2-4); Hematocrit 41.9 % (41-53); Hemoglobin 14.6 g/dL (13.5-17.5); Lymphocytes Absolute Auto 1400 /uL (1100-4500); Lymphocytes Percent Auto 30.1 % (25-40); Mean Corpuscular HGB Conc 34.9 % (30-36); Mean Corpuscular Hemoglobin 30.9 PG (26-34); Mean Corpuscular Volume 88.3 fL (80-100); Monocytes Absolute Auto 500 /uL (0-900); Monocytes Percent Auto 9.9 % (3-14); Neutrophils Absolute Auto 2500 /uL (1500-7000); Neutrophils Percent Auto 53.3 % (50-75); Platelet Count 239 X10^3/uL (150-400); Red Blood Cell Count 4.74 X10^6/uL (4.5-5.9); Red Cell Distribution Width 13.3 % (11.6-14.8); White Blood Cell Count 4.8 X10^3/uL (4.5-11.0)
[2019-07-06 09:39] LABS: Alanine Aminotransferase 41 IU/L (<50); Albumin 4.7 g/dL (3.5-5.0); Albumin Globulin Ratio 1.4 (1.0-2.8); Alkaline Phosphatase 72 U/L (38-126); Aspartate Aminotransferase 40 IU/L (17-59); BUN Creatinine Ratio 20.9 (6-22); Bilirubin Total 0.9 mg/dL (0.2-1.3); Blood Urea Nitrogen 23 mg/dL (9-20); Calcium 9.4 mg/dL (8.4-10.2); Carbon Dioxide 31 mmol/L (22-32); Chloride 100 mmol/L (98-107); Cholesterol 265 mg/dL (140-199); Estimated Glomerular Filt Rate > 60.0 mL/min (>60); Globulin 3.3 g/dL (1.7-4.1); Glucose 104 mg/dL (80-110); HDL Cholesterol 45 mg/dL (40-60); HEMOLYSIS < 15 (0-50); LDL Cholesterol Calculated 186 mg/dL (<100); Potassium 3.8 mmol/L (3.4-5.1); Sodium 141 mmol/L (137-145); Triglycerides 170 mg/dL (35-150)
[2019-07-06 10:09] LABS: Prostate Specific Antigen Scrn 1.11 ng/mL (0.1-4.0)
== END ==
PROVIDERS: PCP Family Medicine; Visit Provider Family Medicine
DX: Z12.5 Encounter for screening for malignant neoplasm of prostate (principal); E78.00 Pure hypercholesterolemia, unspecified; I10 Essential (primary) hypertension; N18.1 Chronic kidney disease, stage 1
CPT/HCPCS: 36415; 80053; 80061; 84443; 85025; G0103

== ENCOUNTER → 2020-02-03 08:55 | Outpatient (CLI) | payer MEDICARE, OTHER, SELFPAY ==
[2020-02-03 10:14] LABS: Testosterone 182 ng/dL (71.8-623)
== END ==
PROVIDERS: PCP Family Medicine; Referring Provider Family Medicine; Visit Provider Family Medicine
DX: E34.9 Endocrine disorder, unspecified (principal)
CPT/HCPCS: 36415; 84403

== ENCOUNTER → 2020-02-24 15:27 | Outpatient (CLI) | payer MEDICARE, OTHER, SELFPAY ==
[2020-02-24 16:43] LABS: Hematocrit 42.8 % (41-53); Hemoglobin 14.7 g/dL (13.5-17.5); Mean Corpuscular HGB Conc 34.4 % (30-36); Mean Corpuscular Hemoglobin 30.5 PG (26-34); Mean Corpuscular Volume 88.7 fL (80-100); Platelet Count 229 X10^3/uL (150-400); Red Blood Cell Count 4.83 X10^6/uL (4.5-5.9); Red Cell Distribution Width 13.4 % (11.6-14.8); White Blood Cell Count 5.5 X10^3/uL (4.5-11.0)
[2020-02-24 17:04] LABS: Alanine Aminotransferase 26 IU/L (<50); Albumin 4.3 g/dL (3.5-5.0); Albumin Globulin Ratio 1.4 (1.0-2.8); Alkaline Phosphatase 65 U/L (38-126); Aspartate Aminotransferase 37 IU/L (17-59); Bilirubin Total 0.5 mg/dL (0.2-1.3); Blood Urea Nitrogen 18 mg/dL (9-20); Calcium 9.9 mg/dL (8.4-10.2); Carbon Dioxide 29 mmol/L (22-32); Chloride 102 mmol/L (98-107); Estimated Glomerular Filt Rate > 60.0 mL/min (>60); Glucose 119 mg/dL (80-110); HEMOLYSIS < 15 (0-50); Iron 86 ug/dL (49-181); Magnesium 2.2 mg/dL (1.6-2.3); Potassium 3.7 mmol/L (3.4-5.1); Sodium 138 mmol/L (137-145); Total Protein 7.3 g/dL (6.3-8.2)
[2020-02-24 17:14] LABS: Percent Iron Saturation 25 % (20-50); Total Iron Binding Capacity 339 ug/dL (261-462); Transferrin 268 mg/dL (206-381)
[2020-02-24 17:40] LABS: Ferritin 32 ng/mL (18-464); HEMOLYSIS < 15 (0-50)
[2020-02-24 17:53] LABS: Vitamin B12 705 pg/mL (239-931)
== END ==
PROVIDERS: PCP Family Medicine; Referring Provider Nurse Practitioner Family; Visit Provider Nurse Practitioner Family
DX: R42 Dizziness and giddiness (principal); N18.1 Chronic kidney disease, stage 1
CPT/HCPCS: 36415; 80053; 82607; 82728; 83540; 83550; 83735; 85027

== ENCOUNTER → 2020-03-08 12:38 | Outpatient (CLI) | payer MEDICARE, OTHER, SELFPAY ==
[2020-03-09 08:14] LABS: Fecal Immunochemical Test Negative (Negative)
== END ==
PROVIDERS: PCP Family Medicine; Referring Provider Nurse Practitioner Family; Visit Provider Nurse Practitioner Family
DX: R42 Dizziness and giddiness (principal)
CPT/HCPCS: 82274

== ENCOUNTER → 2020-03-09 08:31 | Outpatient (CLI) | payer MEDICARE, OTHER, SELFPAY ==
--- NOTE | 2020-04-05 11:21 | P.HOLT.S_ITS ---
Occupational Health Nurse Supervisor Report Referral & Results Date Patient Seen: 03/09/20 Requesting provider: Edward Mullins Indication: Dizziness Duration of monitoring (days): 14 Diary information: There are no patient triggered events or diary entries attached to this report Data: Minimum heart rate identified was 47 beats per minute at 04:53 on 03/20/2020 Maximum sinus heart rate was 163 beats per minute at 19:26 on 03/22/2020 Maximum overall heart rate was 179 beats per minute at 16:47 on 03/15/2020 during a 9 beat run of SVT Less than 1% of identified beats or either ventricular supraventricular ectopic in origin There were 2 runs of SVT with the fastest being the above 9 beat run at 139 beats per minute which was also the longest run. Impression: Essentially unremarkable 14 day dry heat cabinet attendant period 2 very brief runs of SVT as above. Clinical correlation suggested
== END ==
PROVIDERS: Family Provider Nurse Practitioner Family; PCP Family Medicine; Referring Provider Nurse Practitioner Family; Visit Provider Nurse Practitioner Family
DX: R42 Dizziness and giddiness (principal)
CPT/HCPCS: 0296T; 0298T

== ENCOUNTER → 2020-03-17 07:58 | Outpatient (CLI) | payer MEDICARE, OTHER, SELFPAY ==
--- NOTE | 2020-03-17 | DI.ECHO.S_ITS ---
[facility] +---------+ : : [address] : : : : [id number] : : : : Phone: [phone]---------+ Echocardiogram Report + + :Name: LAUREN ALVA Study Date: 03/17/2020 Height: 66 in : :[facility] Weight: 170 lb : : Gender: Male BSA: 1.9 m2 : :: 1955 Age: 64 yrs BP: 170/95 mmHg: :Reason For Study: Dizziness/ Giddiness : : Performed By: Syeda Page : :Referring: LAURA GARCIA : + + Interpretation Summary Left ventricular wall thickness is mildly increased. There is moderate proximal septal thickening noted. The left ventricular ejection fraction is normal. There are no focal wall motion abnormalities. The right ventricle is normal in size and function. There is mild to moderate aortic regurgitation. The ascending aorta is mild-moderately enlarged. -Changes consistent with hypertensive heart disease (MV thickening, AI, dilated ascending aorta and increased LV wall thickness) as above. Procedure: A two-dimensional transthoracic echocardiogram with color flow and Doppler was performed. The study quality was technically adequate. There is no prior echocardiogram noted for this patient. The heart rate ranged between 62-68 bpm during the study. The patient had frequent PACs during the exam. Left Ventricle: There is no echo evidence for significant left ventricular outflow tract obstruction. Left ventricular wall thickness is mildly increased. There is moderate proximal septal thickening noted. The ejection fraction is estimated to be 60-65%. The left ventricular ejection fraction is normal. There are no focal wall motion abnormalities. Right Ventricle: The right ventricle is normal in size and function. Atria: The left atrium is moderately dilated. Right atrial size is normal. There is no Doppler evidence for an interatrial shunt. Mitral Valve: The mitral valve leaflets appear mildly thickened, but open well. There is mild mitral annular calcification. There is borderline prolapse of the posterior leaflet. There is trace mitral regurgitation. Aortic Valve: The aortic valve is trileaflet. The aortic valve opens well. There is mild aortic valve sclerosis. There is mild to moderate aortic regurgitation. Tricuspid Valve: The tricuspid valve is normal in structure and function. There is a trace or physiologic amount of tricuspid regurgitation. Pulmonary artery pressures cannot be estimated because of the lack of a measurable TR jet velocity. Pulmonic Valve: The pulmonic valve is not well seen, but is grossly normal. There is trace pulmonic regurgitation. Great Vessels: The aortic root is mildly dilated. The ascending aorta is mild-moderately enlarged. The pulmonary artery is not well visualized, but is probably normal size. The IVC is dilated (diameter is greater than 2.1 cm) yet it collapses greater than 50% with a sniff. This suggests a right atrial pressure of 8 mm Hg. Pericardium/ Pleura There is no pericardial effusion. There is no pleural effusion. MMode/2D Measurements & Calculations LVIDd: 5.5 cm LVOT diam: 2.1 cm LVIDs: 3.1 cm Ao root diam: 4.0 cm FS: 43.4 % asc Aorta Diam: 4.0 cm IVSd: 0.83 cm LVPWd: 1.1 cm LV heard. diameter/BSA (cm/m^2): 2.9 LV sys. diameter/BSA (cm/m^2): 1.7 LA A2 area: 23.7 cm2 RA long axis: 4.2 cm LA A4 area: 24.8 cm2 RA area: 16.4 cm2 LA length (vol): 5.9 cm RA vol: 54.0 ml LA vol: 84.6 ml RA : 28.9 ml/m2 LA vol index: 45.3 ml/m2 IVC diam: 2.3 cm RVD1 (basal): 3.6 cm TAPSE: 1.9 cm Doppler Measurements & Calculations Ao V2 max: 124.6 cm/sec LVOT Max Hao: 114.9 cm/sec Ao V2 mean: 88.5 cm/sec LV V1 max P.3 mmHg Ao max P.2 mmHg LV V1 VTI: 25.7 cm Ao mean P.4 mmHg MARLEE(I,D): 3.2 cm2 Ao V2 VTI: 28.8 cm MARLEE(V,D): 3.3 cm2 sev ratio: 0.89 MARLEE indexed to BSA (cm^2/m^2): 1.7 AI P1/2t: 415.5 msec AI dec slope: 352.8 cm/sec2 MV E max hao: 51.9 cm/sec PA V2 max: 60.0 cm/sec MV A max hao: 54.8 cm/sec PA V2 mean: 44.6 cm/sec MV E/A: 0.95 PA mean P.85 mmHg Med Peak E' Hao: 4.6 cm/sec PA pr(Accel): 26.3 mmHg E/E' med: 11.2 PA Accel Time: 0.13 sec Lat Peak E' Hao: 7.3 cm/sec E/E' lat: 7.1 E/e' average: 9.2 MV dec time: 0.23 sec SV(OT): 91.3 ml Electronically signed by: Wai Velasquez M.D. on Reading Physician:03/17/2020 02:51 PM
== END ==
PROVIDERS: Family Provider Nurse Practitioner Family; PCP Family Medicine; Referring Provider Nurse Practitioner Family; Visit Provider Nurse Practitioner Family
DX: I35.1 Nonrheumatic aortic (valve) insufficiency (principal); I77.810 Thoracic aortic ectasia; R42 Dizziness and giddiness
CPT/HCPCS: 93306

== ENCOUNTER → 2020-08-04 09:20 | Outpatient (CLI) | payer MEDICARE, OTHER, SELFPAY ==
[2020-08-04 09:47] LABS: Add Manual Diff / Slide Review NO; Basophils Absolute Auto 0 /uL (0-100); Basophils Percent Auto 0.6 % (0-2); Eosinophils Absolute Auto 200 /uL (0-450); Eosinophils Percent Auto 3.4 % (2-4); Hematocrit 44.5 % (41-53); Hemoglobin 15.4 g/dL (13.5-17.5); Lymphocytes Absolute Auto 1700 /uL (1100-4500); Lymphocytes Percent Auto 26.8 % (25-40); Mean Corpuscular HGB Conc 34.6 % (30-36); Mean Corpuscular Hemoglobin 30.8 PG (26-34); Mean Corpuscular Volume 89.1 fL (80-100); Monocytes Absolute Auto 600 /uL (0-900); Monocytes Percent Auto 8.7 % (3-14); Neutrophils Absolute Auto 3900 /uL (1500-7000); Neutrophils Percent Auto 60.5 % (50-75); Platelet Count 226 X10^3/uL (150-400); Red Cell Distribution Width 14.1 % (11.6-14.8); White Blood Cell Count 6.4 X10^3/uL (4.5-11.0)
[2020-08-04 10:31] LABS: Alanine Aminotransferase 31 IU/L (<50); Albumin 4.1 g/dL (3.5-5.0); Albumin Globulin Ratio 1.4 (1.0-2.8); Alkaline Phosphatase 54 U/L (38-126); Aspartate Aminotransferase 30 IU/L (17-59); BUN Creatinine Ratio 30.7 (6-22); Bilirubin Total 0.5 mg/dL (0.2-1.3); Blood Urea Nitrogen 35 mg/dL (9-20); Calcium 9.5 mg/dL (8.4-10.2); Carbon Dioxide 31 mmol/L (22-32); Chloride 105 mmol/L (98-107); Cholesterol 261 mg/dL (140-199); Estimated Glomerular Filt Rate > 60.0 mL/min (>60); Globulin 2.9 g/dL (1.7-4.1); Glucose 102 mg/dL (80-110); HDL Cholesterol 53 mg/dL (40-60); HEMOLYSIS < 15 (0-50); LDL Cholesterol Calculated 182 mg/dL (<100); Potassium 4.2 mmol/L (3.4-5.1); Sodium 139 mmol/L (137-145); Triglycerides 132 mg/dL (35-150)
[2020-08-04 10:57] LABS: Thyroid Stimulating Hormone 2.01 uIU/mL (0.47-4.68)
[2020-08-04 11:01] LABS: Prostate Specific Antigen Scrn 1.22 ng/mL (0.1-4.0)
[2020-08-09 04:03] LABS: Percent Free Testosterone 4.38 % (1.50-4.20); Testosterone Free 14.36 ng/dL (5.00-21.00); Testosterone Total 327.8 ng/dL (264.0-916.0)
== END ==
PROVIDERS: Family Provider Nurse Practitioner Family; PCP Family Medicine; Referring Provider Family Medicine; Visit Provider Family Medicine
DX: E34.9 Endocrine disorder, unspecified (principal); E78.00 Pure hypercholesterolemia, unspecified; Z12.5 Encounter for screening for malignant neoplasm of prostate; I10 Essential (primary) hypertension; N18.1 Chronic kidney disease, stage 1
CPT/HCPCS: 36415; 80053; 80061; 84402; 84403; 84443; 85025; G0103

== ENCOUNTER → 2021-01-10 14:47 | Outpatient (CLI) | payer MEDICARE, OTHER, SELFPAY ==
[2021-01-10 15:33] LABS: BUN Creatinine Ratio 28.6 (6-22); Blood Urea Nitrogen 28 mg/dL (9-20); Calcium 9.6 mg/dL (8.4-10.2); Carbon Dioxide 27 mmol/L (22-32); Chloride 105 mmol/L (98-107); Estimated Glomerular Filt Rate > 60.0 mL/min (>60); Glucose 107 mg/dL (80-110); HEMOLYSIS 16 (0-50); Potassium 3.9 mmol/L (3.4-5.1); Sodium 140 mmol/L (137-145)
[2021-01-10 16:06] LABS: Prostate Specific Antigen 1.15 ng/mL (0.10-4.00)
== END ==
PROVIDERS: Family Provider Nurse Practitioner Family; PCP Family Medicine; Referring Provider Family Medicine; Visit Provider Family Medicine
DX: N40.0 Benign prostatic hyperplasia without lower urinary tract symptoms (principal)
CPT/HCPCS: 36415; 80048; 84153

== ENCOUNTER → 2021-08-15 08:20 | Outpatient (CLI) | payer MEDICARE, OTHER, SELFPAY ==
[2021-08-15 10:06] LABS: Add Manual Diff / Slide Review NO; Basophils Absolute Auto 0 /uL (0-100); Basophils Percent Auto 0.6 % (0-2); Eosinophils Absolute Auto 200 /uL (0-450); Eosinophils Percent Auto 4.4 % (2-4); Hematocrit 41.4 % (41-53); Hemoglobin 13.9 g/dL (13.5-17.5); Lymphocytes Absolute Auto 1100 /uL (1100-4500); Lymphocytes Percent Auto 29.2 % (25-40); Mean Corpuscular HGB Conc 33.5 % (30-36); Mean Corpuscular Hemoglobin 29.6 PG (26-34); Mean Corpuscular Volume 88.5 fL (80-100); Monocytes Absolute Auto 400 /uL (0-900); Monocytes Percent Auto 11.4 % (3-14); Neutrophils Absolute Auto 2100 /uL (1500-7000); Neutrophils Percent Auto 54.4 % (50-75); Platelet Count 192 X10^3/uL (150-400); Red Blood Cell Count 4.68 X10^6/uL (4.5-5.9); Red Cell Distribution Width 13.7 % (11.6-14.8); White Blood Cell Count 3.8 X10^3/uL (4.5-11.0)
[2021-08-15 10:49] LABS: Alanine Aminotransferase 33 IU/L (<50); Albumin 4.3 g/dL (3.5-5.0); Albumin Globulin Ratio 1.6 (1.0-2.8); Alkaline Phosphatase 55 U/L (38-126); Aspartate Aminotransferase 32 IU/L (17-59); BUN Creatinine Ratio 20.9 (6-22); Bilirubin Total 0.5 mg/dL (0.2-1.3); Blood Urea Nitrogen 24 mg/dL (9-20); Calcium 9.5 mg/dL (8.4-10.2); Carbon Dioxide 30 mmol/L (22-32); Chloride 104 mmol/L (98-107); Cholesterol 157 mg/dL (140-199); Estimated Glomerular Filt Rate > 60.0 mL/min (>60); Globulin 2.7 g/dL (1.7-4.1); Glucose 96 mg/dL (80-110); HDL Cholesterol 51 mg/dL (40-60); HEMOLYSIS < 15 (0-50); LDL Cholesterol Calculated 83 mg/dL (<100); Potassium 4.2 mmol/L (3.4-5.1); Sodium 140 mmol/L (137-145); Triglycerides 114 mg/dL (35-150)
[2021-08-15 11:19] LABS: Prostate Specific Antigen Scrn 1.91 ng/mL (0.1-4.0)
[2021-08-15 11:21] LABS: Testosterone 200 ng/dL (71.8-623)
[2021-08-15 11:22] LABS: TSH w/ Reflex to FT4 2.22 uIU/mL (0.47-4.68)
== END ==
PROVIDERS: Family Provider Nurse Practitioner Family; PCP Family Medicine; Referring Provider Family Medicine; Visit Provider Family Medicine
DX: E78.00 Pure hypercholesterolemia, unspecified (principal); Z12.5 Encounter for screening for malignant neoplasm of prostate; I10 Essential (primary) hypertension; N18.1 Chronic kidney disease, stage 1; N40.0 Benign prostatic hyperplasia without lower urinary tract symptoms; E34.9 Endocrine disorder, unspecified
CPT/HCPCS: 36415; 80053; 80061; 84403; 84443; 85025; G0103

== ENCOUNTER 2021-12-25 12:36 | Day surgery (SDC) | payer MEDICARE, OTHER, SELFPAY ==
[2021-12-25] VITALS (7 sets, daily range): BP systolic 115–152; BP diastolic 63–92; PULSE 72–87; RESP 12–18; TEMP 36.1–36.4; O2SAT 96–97; BMI 26.9
[2021-12-25 13:14] LABS: COVID19 -Nasal RAPID Negative (Negative)
--- NOTE | 2021-12-25 13:57 | PM.HP.1 ---
History of Present Illness History of Present Illness Date Patient Seen: 12/25/21 Time Patient Seen: 13:57 Chief complaint: SCREENING COLONOSCOPY Narrative: The patient presents for colorectal screening. Previously normal colonoscopy 12 years ago. No personal or family history of colon cancer. On further history denies any recent gastrointestinal symptoms. No nausea, vomiting, abdominal pain, loss of appetite, unexplained weight loss, change in bowel habits, diarrhea, constipation, melena, hematochezia, or bright red blood per rectum. Patient History Medical History Chicken pox (~1964) Chronic back pain (~2004) Dizziness Fractures Hypertension (~2001) Kidney stones Measles (~1960) Mumps (~1962) Orthostatic dizziness Shoulder pain (~2003) Surgical History History of vasectomy (~1992) Family & Social History Family History Father Heart disease Hypertension High cholesterol Mother Thyroiditis Social History: household members spouse Tobacco & Substance use: Smoking Status Never smoker alcohol intake current alcohol intake frequency a few times a week Substance Use Type does not use Meds Home Medications and Allergies Home Medications Medication Instructions Recorded Confirmed Type multivitamin 1 tab PO DAILY 01/10/21 12/25/21 History losartan 100 1 tab PO QDAY #90 tab 06/20/21 12/25/21 Rx mg-hydrochlorothiazide 25 mg tablet (Hyzaar) sodium,potassium,mag sulfates 17.5 See Rx Instructions PO .COMPLEX 11/21/21 Rx gram-3.13 gram-1.6 gram oral soln #354 ml (Suprep Bowel Prep Kit) omeprazole 40 mg capsule,delayed See Rx Instructions .ROUTE 12/17/21 12/25/21 Rx release .COMPLEX #90 cap doxazosin 4 mg tablet 4 mg PO DAILY #90 tab 12/20/21 12/25/21 Rx rosuvastatin 5 mg tablet See Rx Instructions .ROUTE 12/25/21 12/25/21 Rx .COMPLEX #90 tab Allergies Allergy/AdvReac Type Severity Reaction Status Date / Time testosterone [From ANDRODERM] Allergy Mild welts and Verified 01/10/21 14:08 itching (skin patch) Exam Vital Signs (past 8 hours): - 12/25/21 12:50 Temperature 97.2 F L Pulse Rate 72 Respiratory Rate 18 Blood Pressure 142/84 H Pulse Oximetry 96 Oxygen Delivery Method Room Air Narrative Exam Narrative: General adult male alert oriented no acute distress Chest nonlabored respirations Abdomen soft nontender nondistended Extremities warm well perfused. Objective Labs Labs: Laboratory Results - last 24 hr 12/25/21 12:47 SARS-CoV-2 (PCR) Negative Assessment & Plan Assessment & Plan narrative: The patient requires colorectal screening and colonoscopy is recommended. Technical details were discussed. Risks, benefits, alternatives explained. Risks including but not limited to myocardial infarction, aspiration, bleeding, pain, missed lesion, incomplete examination, need for further radiographic studies, colonic perforation, and need for major abdominal surgery were discussed. All questions were answered to their satisfaction, and they are in agreement with this plan. Time Spent With Patient Critical Care time: I spent a total of [] minutes of critical care time on this patient's care today; this time is exclusive of procedural time.
[2021-12-25] MEDS: fentaNYL 250 MCG/5 ML INJ 150 MCG IV (14:15)
[2021-12-25] MEDS: MIDAZOLAM 5 MG/5 ML VIAL IV (14:15)
--- NOTE | 2021-12-25 14:27 | P.OP.COLON_ITS ---
Operative Date/Time/Diagnoses Date of procedure: 12/25/21 Time of procedure: 14:27 Pre-op diagnosis: Screening Post-op diagnosis: same Procedure & Clinicians Study performed: Colonoscopy Same procedure as scheduled: Yes Indications: Screening Surgeon: Jared Haddad Procedure Notes Procedure in detail: Medications: Conscious sedation using 5 mg IV midazolam and 150 mcg IV of fentanyl The history and physical was performed/updated and the patient is ASA class is 2. The procedure was discussed in detail with the patient. Potential risks complications including infection, bleeding, missed diagnosis, perforation, need for surgery, and were explained. Their questions were answered and informed consent was obtained. Patient was brought to the procedure room and placed standard monitoring equipment. The patient's vital signs were monitored continuously throughout the entire procedure. Prior to starting time-out was performed. The patient was placed in the left lateral recumbent position. Procedural sedation was adminis tered. Examination began with a thorough inspection of the perianal area there was no evidence of fissures, fistulae, external hemorrhoids or cutaneous malignancy. The colonoscopy scope was then placed into the anal canal and was advanced to the cecum, which was identified by the ileocecal valve, the appendiceal orifice and the confluence of the taenia. The scope was then slowly withdrawn examining colon thoroughly in all directions, irrigating it of any residual stool. FINDINGS 1. Extensive sigmoid diverticulosis 2. No masses or polyps 3. Internal hemorrhoids The patient tolerated the procedure well. They will be discharged once criteria are met. The prep was of good/excellent quality. The withdrawl time was 7 minutes. The sedation time was 20 minutes. Specimen(s): none sent Complications: none Impression: Normal colonoscopy Post-procedure Recommendations: Colonoscopy in 10 years and High fiber diet Disposition: same day surgery
== END 2021-12-25 15:12 | disposition home or self-care (01) ==
PROVIDERS: Family Provider Nurse Practitioner Family; PCP Family Medicine; Referring Provider Surgery; Visit Provider Surgery
PROC: 0DJD8ZZ Inspection of Lower Intestinal Tract, Via Natural or Artificial Opening Endoscopic (ICD-10-PCS; CPT 45378; principal; 2021-12-25 13:45)
DX: Z12.11 Encounter for screening for malignant neoplasm of colon (principal); Z20.822 Contact with and (suspected) exposure to COVID-19; K57.30 Diverticulosis of large intestine without perforation or abscess without bleeding; K64.8 Other hemorrhoids
CPT/HCPCS: G0121; 87635; 99152; C9803; J2250; J3010

== ENCOUNTER → 2023-01-20 08:27 | Outpatient (CLI) | payer MEDICARE, OTHER, SELFPAY ==
[2023-01-20 11:11] LABS: Add Manual Diff / Slide Review NO; Basophils Absolute Auto 0 /uL (0-100); Basophils Percent Auto 0.6 % (0-2); Eosinophils Absolute Auto 100 /uL (0-450); Eosinophils Percent Auto 2.9 % (2-4); Hematocrit 41.7 % (41-53); Hemoglobin 14.3 g/dL (13.5-17.5); Lymphocytes Absolute Auto 1500 /uL (1100-4500); Lymphocytes Percent Auto 30.5 % (25-40); Mean Corpuscular HGB Conc 34.2 % (30-36); Mean Corpuscular Hemoglobin 30.5 PG (26-34); Monocytes Absolute Auto 400 /uL (0-900); Monocytes Percent Auto 8.9 % (3-14); Neutrophils Absolute Auto 2800 /uL (1500-7000); Neutrophils Percent Auto 57.1 % (50-75); Platelet Count 231 X10^3/uL (150-400); Red Blood Cell Count 4.69 X10^6/uL (4.5-5.9); Red Cell Distribution Width 13.5 % (11.6-14.8); White Blood Cell Count 4.9 X10^3/uL (4.5-11.0)
[2023-01-20 12:06] LABS: Alanine Aminotransferase 29 IU/L (<50); Albumin 4.1 g/dL (3.5-5.0); Albumin Globulin Ratio 1.4 (1.0-2.8); Alkaline Phosphatase 69 U/L (38-126); Aspartate Aminotransferase 30 IU/L (17-59); BUN Creatinine Ratio 22.3 (6-22); Bilirubin Total 0.6 mg/dL (0.2-1.3); Blood Urea Nitrogen 25 mg/dL (9-20); Calcium 9.2 mg/dL (8.4-10.2); Carbon Dioxide 29 mmol/L (22-32); Chloride 103 mmol/L (98-107); Cholesterol 245 mg/dL (140-199); Estimated Glomerular Filt Rate > 60 mL/min (>60); Glucose 99 mg/dL (80-110); HDL Cholesterol 51 mg/dL (40-60); HEMOLYSIS < 15 (0-50); LDL Cholesterol Calculated 173 mg/dL (<100); Potassium 4.1 mmol/L (3.4-5.1); Sodium 139 mmol/L (137-145); Total Protein 7.1 g/dL (6.3-8.2); Triglycerides 107 mg/dL (35-150)
[2023-01-20 12:33] LABS: Prostate Specific Antigen Scrn 1.31 ng/mL (0.1-4.0); TSH w/ Reflex to FT4 2.08 uIU/mL (0.47-4.68)
== END ==
PROVIDERS: Family Provider Nurse Practitioner Family; PCP Family Medicine; Referring Provider Family Medicine; Visit Provider Family Medicine
DX: E78.00 Pure hypercholesterolemia, unspecified (principal); Z12.5 Encounter for screening for malignant neoplasm of prostate; I10 Essential (primary) hypertension; N40.0 Benign prostatic hyperplasia without lower urinary tract symptoms
CPT/HCPCS: 36415; 80053; 80061; 84443; 85025; G0103

== ENCOUNTER → 2023-06-03 12:50 | Outpatient (CLI) | payer MEDICARE, OTHER, SELFPAY ==
[2023-06-03 14:51] LABS: Free T4, Direct Thyroxine 1.21 ng/dL (0.78-2.19)
[2023-06-03 14:52] LABS: Free T3, Triiodothyronine Free 3.67 pg/mL (2.77-5.27)
[2023-06-03 15:05] LABS: Thyroid Stimulating Hormone 1.35 uIU/mL (0.47-4.68)
[2023-06-07 21:52] LABS: Thyroid Stimulating Immunoglob < 0.10 IU/L (0.00-0.55)
[2023-06-09 13:03] LABS: Acetylcholine Receptor Bind AB 2.82 nmol/L (0.00-0.24)
== END ==
PROVIDERS: PCP Family Medicine; Referring Provider Ophthalmology; Visit Provider Ophthalmology
DX: H53.2 Diplopia (principal); H50.22 Vertical strabismus, left eye
CPT/HCPCS: 36415; 83519; 84439; 84443; 84445; 84481

== ENCOUNTER → 2023-06-13 13:44 | Outpatient (CLI) | payer MEDICARE, OTHER, SELFPAY ==
--- NOTE | 2023-06-13 | DI.MRI.S_ITS ---
PROCEDURE: MR HEAD/BRAIN WO/W CON INDICATIONS: DIPLOPIA / VERTICAL STRABISMUS TECHNIQUE: Noncontrast sagittal T1 spin echo, axial T2 fast spin echo, axial FLAIR, axial gradient echo, axial diffusion and ADC through the brain. Axial/sagittal/coronal 3-D CISS, thin-slice axial T1 spin echo with fat saturation through the skull base. After the administration of contrast, axial and coronal thin-slice T1 spin echo with fat saturation through the skull base, axial and coronal and sagittal T1 spin echo with fat saturation through the brain. COMPARISON: None. FINDINGS: Image quality: Excellent. Cranial nerves: Scrutiny is given to the cranial nerves at the skull base. No masses or abnormal enhancement can be seen. CSF spaces: Ventricles are normal in size and shape. No extra-axial fluid collections. Basal cisterns are patent. Brain: No intracranial bleeds or mass effects. No abnormal intracranial enhancement. Diffusion weighted images show no acute ischemic insults. Merritt-white matter interface is intact. Brainstem is normal. Normal intravascular flow voids are present. Skull and face: Calvarial marrow signal is normal. Orbits appear normal. Sinuses: Moderate mucosal thickening can be seen involving the inferior aspects of the maxillary sinuses. Milder mucosal thickening can be seen elsewhere within the paranasal sinuses. Note is made of nasal septal perforation, as seen on series 11, image 4. No abnormal fluid is seen within the mastoid air cells. IMPRESSION: No imaging explanation is found for this patient's presenting symptoms. No masses or abnormal enhancement can be seen. No findings of acute or subacute infarction can be seen. Dictated by: Fawad Godinez M.D. on 06/13/2023 at 14:54 Approved by: Fawad Godinez M.D. on 06/13/2023 at 14:55
== END ==
PROVIDERS: PCP Family Medicine; Referring Provider Ophthalmology; Visit Provider Ophthalmology
DX: H53.2 Diplopia (principal); H50.22 Vertical strabismus, left eye
CPT/HCPCS: 70553; A9579

== ENCOUNTER → 2023-06-25 12:39 | Outpatient (CLI) | payer MEDICARE, OTHER, SELFPAY ==
[2023-06-25 14:00] LABS: Influenza A - CEPHEID Flu A POSITIVE (NEGATIVE); Influenza B - CEPHEID Flu B NEGATIVE (NEGATIVE); Respiratory Syncytial Virus Negative (Negative)
[2023-06-25 14:02] LABS: COVID-19 CEPHEID 4-PLEX PCR Negative (Negative)
== END ==
PROVIDERS: PCP Family Medicine; Visit Provider Nurse Practitioner Family
DX: R05.1 Acute cough (principal); J02.9 Acute pharyngitis, unspecified
CPT/HCPCS: 0241U; 87070

== ENCOUNTER → 2023-07-17 11:26 | Outpatient (CLI) | payer MEDICARE, OTHER, SELFPAY ==
--- NOTE | 2023-07-17 11:28 | DI.CT.S_ITS ---
PROCEDURE: CT CHEST W CON INDICATIONS: Myasthenia gravis without (acute) exacerbation TECHNIQUE: After the administration of intravenous contrast, 5 mm thick sections acquired from the pulmonary apices to the posterior costophrenic angles. 1 mm axial lung, 5 mm thick coronal and sagittal reformats and 7 mm axial MIP were acquired. For radiation dose reduction, the following was used: automated exposure control, adjustment of mA and/or kV according to patient size. COMPARISON: None. FINDINGS: Image quality: Excellent. Lungs and pleura: No acute air space opacities. No pleural effusions or pneumothorax. Central and peripheral airways are patent and normal in caliber. Mediastinum: Heart size is normal. The coronary arteries have atherosclerotic calcifications. No pericardial effusion. No mediastinal adenopathy by size criteria. Thoracic aorta and central pulmonary arteries are normal in size. Esophagus is normal in caliber. No hiatal hernia. Bones and chest wall: No suspicious bony lesions. No vertebral body compression fractures. No axillary or supraclavicular adenopathy by size criteria. Thyroid gland is normal. Abdomen: Limited visualization of the upper abdomen shows no acute abnormality. 6 centimeter left renal cyst. IMPRESSION: 1. No acute abnormality of the chest. 2. Coronary artery disease. 3. No mediastinal mass. Dictated by: Francisco J Paniagua M.D. on 07/17/2023 at 16:58 Approved by: Francisco J Paniagua M.D. on 07/17/2023 at 17:02
[2023-07-17 12:13] LABS: Estimated Glomerular Filt Rate > 60 mL/min (>60)
== END ==
PROVIDERS: Radiology Diagnostic Radiology; PCP Family Medicine; Referring Provider Psychiatry & Neurology Neurology; Visit Provider Psychiatry & Neurology Neurology
DX: N40.0 Benign prostatic hyperplasia without lower urinary tract symptoms (principal); G70.00 Myasthenia gravis without (acute) exacerbation; I25.10 Atherosclerotic heart disease of native coronary artery without angina pectoris
CPT/HCPCS: 36415; 71260; 82565; Q9967

== ENCOUNTER → 2023-08-07 09:00 | Outpatient (CLI) | payer MEDICARE, OTHER, SELFPAY ==
[2023-08-07 11:10] LABS: Cholesterol 260 mg/dL (140-199); HDL Cholesterol 80 mg/dL (40-60); LDL Cholesterol Calculated 147 mg/dL (<100); Triglycerides 167 mg/dL (35-150)
== END ==
PROVIDERS: PCP Family Medicine; Referring Provider Family Medicine; Visit Provider Family Medicine
DX: E78.00 Pure hypercholesterolemia, unspecified (principal)
CPT/HCPCS: 36415; 80061

== ENCOUNTER → 2024-06-09 08:50 | Outpatient (CLI) | payer MEDICARE, OTHER, SELFPAY ==
[2024-06-09 09:53] LABS: Add Manual Diff / Slide Review NO; Basophils Absolute Auto 0 /uL (0-100); Basophils Percent Auto 0.5 % (0-2); Eosinophils Absolute Auto 0 /uL (0-450); Eosinophils Percent Auto 0.6 % (2-4); Hematocrit 42.5 % (41-53); Hemoglobin 14.6 g/dL (13.5-17.5); Lymphocytes Absolute Auto 1900 /uL (1100-4500); Lymphocytes Percent Auto 34.6 % (25-40); Mean Corpuscular HGB Conc 34.4 % (30-36); Mean Corpuscular Hemoglobin 30.3 PG (26-34); Mean Corpuscular Volume 88.2 fL (80-100); Monocytes Absolute Auto 500 /uL (0-900); Monocytes Percent Auto 9.8 % (3-14); Neutrophils Absolute Auto 2900 /uL (1500-7000); Neutrophils Percent Auto 54.5 % (50-75); Platelet Count 265 X10^3/uL (150-400); Red Blood Cell Count 4.81 X10^6/uL (4.5-5.9); Red Cell Distribution Width 13.6 % (11.6-14.8); White Blood Cell Count 5.4 X10^3/uL (4.5-11.0)
[2024-06-09 10:07] LABS: Cholesterol 316 mg/dL (140-199); HDL Cholesterol 67 mg/dL (40-60); LDL Cholesterol Calculated 225 mg/dL (<100); Triglycerides 122 mg/dL (35-150)
[2024-06-09 10:39] LABS: Prostate Specific Antigen Scrn 1.39 ng/mL (0.1-4.0)
[2024-06-09 10:40] LABS: TSH w/ Reflex to FT4 2.49 uIU/mL (0.47-4.68)
== END ==
PROVIDERS: PCP Family Medicine; Referring Provider Psychiatry & Neurology Neurology; Visit Provider Psychiatry & Neurology Neurology
DX: G70.00 Myasthenia gravis without (acute) exacerbation (principal); N18.1 Chronic kidney disease, stage 1; Z12.5 Encounter for screening for malignant neoplasm of prostate; Z29.89 Encounter for other specified prophylactic measures; N40.0 Benign prostatic hyperplasia without lower urinary tract symptoms; M17.12 Unilateral primary osteoarthritis, left knee; I12.9 Hypertensive chronic kidney disease with stage 1 through stage 4 chronic kidney disease, or unspecified chronic kidney disease
CPT/HCPCS: 36415; 80061; 84443; 85025; G0103

== ENCOUNTER → 2024-07-09 08:23 | Outpatient (CLI) | payer MEDICARE, OTHER, SELFPAY ==
[2024-07-09 09:20] LABS: Alanine Aminotransferase 21 IU/L (<50); Albumin 3.8 g/dL (3.5-5.0); Albumin Globulin Ratio 1.4 (1.0-2.8); Alkaline Phosphatase 66 U/L (38-126); Aspartate Aminotransferase 30 IU/L (17-59); BUN Creatinine Ratio 18.8 (6-22); Bilirubin Total 0.5 mg/dL (0.2-1.3); Blood Urea Nitrogen 22 mg/dL (9-20); Calcium 9.5 mg/dL (8.4-10.2); Carbon Dioxide 29 mmol/L (22-32); Chloride 102 mmol/L (98-107); Estimated Glomerular Filt Rate > 60 mL/min (>60); Globulin 2.8 g/dL (1.7-4.1); Glucose 106 mg/dL (80-110); HEMOLYSIS < 15 (0-50); Potassium 3.4 mmol/L (3.4-5.1); Sodium 135 mmol/L (137-145); Total Protein 6.6 g/dL (6.3-8.2)
== END ==
PROVIDERS: PCP Family Medicine; Referring Provider Psychiatry & Neurology Neurology; Visit Provider Psychiatry & Neurology Neurology
DX: G70.00 Myasthenia gravis without (acute) exacerbation (principal); Z29.89 Encounter for other specified prophylactic measures
CPT/HCPCS: 36415; 80053

== ENCOUNTER → 2024-07-16 09:00 | Outpatient (CLI) | payer MEDICARE, OTHER, SELFPAY ==
[2024-07-16 09:43] LABS: Add Manual Diff / Slide Review NO; Basophils Absolute Auto 0 /uL (0-100); Basophils Percent Auto 0.4 % (0-2); Eosinophils Absolute Auto 100 /uL (0-450); Eosinophils Percent Auto 1.8 % (2-4); Hematocrit 39.8 % (41-53); Hemoglobin 13.4 g/dL (13.5-17.5); Lymphocytes Absolute Auto 1500 /uL (1100-4500); Lymphocytes Percent Auto 24.3 % (25-40); Mean Corpuscular HGB Conc 33.7 % (30-36); Mean Corpuscular Hemoglobin 29.8 PG (26-34); Mean Corpuscular Volume 88.5 fL (80-100); Monocytes Absolute Auto 700 /uL (0-900); Monocytes Percent Auto 10.4 % (3-14); Neutrophils Absolute Auto 4000 /uL (1500-7000); Neutrophils Percent Auto 63.1 % (50-75); Platelet Count 300 X10^3/uL (150-400); Red Blood Cell Count 4.49 X10^6/uL (4.5-5.9); Red Cell Distribution Width 13.8 % (11.6-14.8); White Blood Cell Count 6.3 X10^3/uL (4.5-11.0)
== END ==
PROVIDERS: PCP Family Medicine; Referring Provider Psychiatry & Neurology Neurology; Visit Provider Psychiatry & Neurology Neurology
DX: G70.00 Myasthenia gravis without (acute) exacerbation (principal); Z29.89 Encounter for other specified prophylactic measures
CPT/HCPCS: 36415; 85025

== ENCOUNTER → 2024-08-09 08:32 | Outpatient (CLI) | payer MEDICARE, OTHER, SELFPAY ==
[2024-08-09 09:00] LABS: Add Manual Diff / Slide Review NO; Basophils Absolute Auto 0 /uL (0-100); Basophils Percent Auto 0.5 % (0-2); Eosinophils Absolute Auto 100 /uL (0-450); Eosinophils Percent Auto 1.2 % (2-4); Hematocrit 41.4 % (41-53); Hemoglobin 13.8 g/dL (13.5-17.5); Lymphocytes Absolute Auto 1500 /uL (1100-4500); Lymphocytes Percent Auto 34.7 % (25-40); Mean Corpuscular HGB Conc 33.4 % (30-36); Mean Corpuscular Volume 89.8 fL (80-100); Monocytes Absolute Auto 500 /uL (0-900); Monocytes Percent Auto 10.6 % (3-14); Neutrophils Absolute Auto 2300 /uL (1500-7000); Platelet Count 272 X10^3/uL (150-400); Red Blood Cell Count 4.61 X10^6/uL (4.5-5.9); White Blood Cell Count 4.4 X10^3/uL (4.5-11.0)
[2024-08-09 09:20] LABS: Alanine Aminotransferase 26 IU/L (<50); Albumin 4.4 g/dL (3.5-5.0); Albumin Globulin Ratio 1.8 (1.0-2.8); Alkaline Phosphatase 63 U/L (38-126); Aspartate Aminotransferase 35 IU/L (17-59); BUN Creatinine Ratio 14.4 (6-22); Bilirubin Total 0.6 mg/dL (0.2-1.3); Blood Urea Nitrogen 16 mg/dL (9-20); Calcium 9.8 mg/dL (8.4-10.2); Carbon Dioxide 33 mmol/L (22-32); Chloride 101 mmol/L (98-107); Estimated Glomerular Filt Rate > 60 mL/min (>60); Globulin 2.5 g/dL (1.7-4.1); Glucose 95 mg/dL (80-110); HEMOLYSIS < 15 (0-50); Potassium 3.7 mmol/L (3.4-5.1); Sodium 140 mmol/L (137-145); Total Protein 6.9 g/dL (6.3-8.2)
== END ==
PROVIDERS: PCP Family Medicine; Referring Provider Psychiatry & Neurology Neurology; Visit Provider Psychiatry & Neurology Neurology
DX: Z29.89 Encounter for other specified prophylactic measures (principal); G70.00 Myasthenia gravis without (acute) exacerbation
CPT/HCPCS: 36415; 80053; 85025

== ENCOUNTER → 2024-09-13 08:13 | Outpatient (CLI) | payer MEDICARE, OTHER, SELFPAY ==
[2024-09-13 08:43] LABS: Add Manual Diff / Slide Review NO; Basophils Absolute Auto 0 /uL (0-100); Basophils Percent Auto 0.4 % (0-2); Eosinophils Absolute Auto 0 /uL (0-450); Eosinophils Percent Auto 0.9 % (2-4); Hematocrit 37.8 % (41-53); Hemoglobin 12.8 g/dL (13.5-17.5); Lymphocytes Absolute Auto 1700 /uL (1100-4500); Lymphocytes Percent Auto 35.8 % (25-40); Mean Corpuscular Hemoglobin 30.4 PG (26-34); Mean Corpuscular Volume 89.4 fL (80-100); Monocytes Absolute Auto 400 /uL (0-900); Monocytes Percent Auto 8.4 % (3-14); Neutrophils Absolute Auto 2600 /uL (1500-7000); Neutrophils Percent Auto 54.5 % (50-75); Platelet Count 248 X10^3/uL (150-400); Red Blood Cell Count 4.22 X10^6/uL (4.5-5.9); Red Cell Distribution Width 13.8 % (11.6-14.8); White Blood Cell Count 4.8 X10^3/uL (4.5-11.0)
[2024-09-13 10:14] LABS: Alanine Aminotransferase 17 IU/L (<50); Albumin 4.1 g/dL (3.5-5.0); Albumin Globulin Ratio 1.8 (1.0-2.8); Alkaline Phosphatase 55 U/L (38-126); Aspartate Aminotransferase 25 IU/L (17-59); BUN Creatinine Ratio 21.9 (6-22); Bilirubin Total 0.4 mg/dL (0.2-1.3); Blood Urea Nitrogen 23 mg/dL (9-20); Calcium 9.6 mg/dL (8.4-10.2); Carbon Dioxide 28 mmol/L (22-32); Chloride 104 mmol/L (98-107); Estimated Glomerular Filt Rate > 60 mL/min (>60); Globulin 2.3 g/dL (1.7-4.1); Glucose 95 mg/dL (80-110); HEMOLYSIS < 15 (0-50); Potassium 3.4 mmol/L (3.4-5.1); Sodium 141 mmol/L (137-145); Total Protein 6.4 g/dL (6.3-8.2)
== END ==
PROVIDERS: PCP Family Medicine; Referring Provider Psychiatry & Neurology Neurology; Visit Provider Psychiatry & Neurology Neurology
DX: G70.00 Myasthenia gravis without (acute) exacerbation (principal); Z29.89 Encounter for other specified prophylactic measures
CPT/HCPCS: 36415; 80053; 85025

== ENCOUNTER → 2024-10-15 09:45 | Outpatient (CLI) | payer MEDICARE, OTHER, SELFPAY ==
[2024-10-15 10:42] LABS: Add Manual Diff / Slide Review NO; Basophils Absolute Auto 0 /uL (0-100); Basophils Percent Auto 0.4 % (0-2); Eosinophils Absolute Auto 0 /uL (0-450); Eosinophils Percent Auto 0.8 % (2-4); Hematocrit 42.5 % (41-53); Hemoglobin 14.3 g/dL (13.5-17.5); Lymphocytes Absolute Auto 1500 /uL (1100-4500); Lymphocytes Percent Auto 29.4 % (25-40); Mean Corpuscular HGB Conc 33.5 % (30-36); Mean Corpuscular Hemoglobin 30.3 PG (26-34); Mean Corpuscular Volume 90.4 fL (80-100); Monocytes Absolute Auto 400 /uL (0-900); Monocytes Percent Auto 8.4 % (3-14); Neutrophils Absolute Auto 3100 /uL (1500-7000); Platelet Count 267 X10^3/uL (150-400); Red Cell Distribution Width 13.9 % (11.6-14.8)
[2024-10-15 11:01] LABS: BUN Creatinine Ratio 19.6 (6-22); Blood Urea Nitrogen 21 mg/dL (9-20); Calcium 9.9 mg/dL (8.4-10.2); Carbon Dioxide 29 mmol/L (22-32); Chloride 99 mmol/L (98-107); Estimated Glomerular Filt Rate > 60 mL/min (>60); Glucose 101 mg/dL (80-110); HEMOLYSIS < 15 (0-50); Potassium 3.7 mmol/L (3.4-5.1); Sodium 137 mmol/L (137-145)
== END ==
PROVIDERS: PCP Family Medicine; Referring Provider Psychiatry & Neurology Neurology; Visit Provider Psychiatry & Neurology Neurology
DX: G70.00 Myasthenia gravis without (acute) exacerbation (principal); Z29.89 Encounter for other specified prophylactic measures
CPT/HCPCS: 36415; 80048; 85025

== ENCOUNTER → 2024-11-09 09:06 | Outpatient (CLI) | payer MEDICARE, OTHER, SELFPAY ==
[2024-11-09 09:50] LABS: Add Manual Diff / Slide Review NO; Basophils Absolute Auto 0 /uL (0-100); Basophils Percent Auto 0.3 % (0-2); Eosinophils Absolute Auto 100 /uL (0-450); Eosinophils Percent Auto 1.2 % (2-4); Hematocrit 38.7 % (41-53); Lymphocytes Absolute Auto 1500 /uL (1100-4500); Lymphocytes Percent Auto 26.5 % (25-40); Mean Corpuscular HGB Conc 33.5 % (30-36); Mean Corpuscular Volume 89.5 fL (80-100); Monocytes Absolute Auto 500 /uL (0-900); Neutrophils Absolute Auto 3700 /uL (1500-7000); Platelet Count 244 X10^3/uL (150-400); Red Blood Cell Count 4.33 X10^6/uL (4.5-5.9); Red Cell Distribution Width 13.6 % (11.6-14.8); White Blood Cell Count 5.7 X10^3/uL (4.5-11.0)
[2024-11-09 10:16] LABS: Alanine Aminotransferase 22 IU/L (<50); Albumin 4.1 g/dL (3.5-5.0); Albumin Globulin Ratio 1.8 (1.0-2.8); Alkaline Phosphatase 56 U/L (38-126); Aspartate Aminotransferase 37 IU/L (17-59); BUN Creatinine Ratio 28.2 (6-22); Bilirubin Total 0.6 mg/dL (0.2-1.3); Blood Urea Nitrogen 29 mg/dL (9-20); Calcium 9.6 mg/dL (8.4-10.2); Carbon Dioxide 29 mmol/L (22-32); Chloride 105 mmol/L (98-107); Estimated Glomerular Filt Rate > 60 mL/min (>60); Globulin 2.3 g/dL (1.7-4.1); Glucose 88 mg/dL (80-110); HEMOLYSIS < 15 (0-50); Potassium 3.5 mmol/L (3.4-5.1); Sodium 141 mmol/L (137-145); Total Protein 6.4 g/dL (6.3-8.2)
== END ==
PROVIDERS: PCP Family Medicine; Referring Provider Psychiatry & Neurology Neurology; Visit Provider Psychiatry & Neurology Neurology
DX: G70.00 Myasthenia gravis without (acute) exacerbation (principal); Z29.89 Encounter for other specified prophylactic measures
CPT/HCPCS: 36415; 80053; 85025

== ENCOUNTER → 2024-12-21 12:52 | Outpatient (CLI) | payer MEDICARE, OTHER, SELFPAY ==
[2024-12-21 13:32] LABS: Add Manual Diff / Slide Review NO; Basophils Absolute Auto 0 /uL (0-100); Basophils Percent Auto 0.1 % (0-2); Eosinophils Absolute Auto 0 /uL (0-450); Eosinophils Percent Auto 0.3 % (2-4); Hematocrit 39.7 % (41-53); Hemoglobin 13.7 g/dL (13.5-17.5); Lymphocytes Absolute Auto 700 /uL (1100-4500); Lymphocytes Percent Auto 7.6 % (25-40); Mean Corpuscular HGB Conc 34.5 % (30-36); Mean Corpuscular Hemoglobin 30.8 PG (26-34); Mean Corpuscular Volume 89.3 fL (80-100); Monocytes Absolute Auto 400 /uL (0-900); Monocytes Percent Auto 4.5 % (3-14); Neutrophils Absolute Auto 8200 /uL (1500-7000); Neutrophils Percent Auto 87.5 % (50-75); Platelet Count 237 X10^3/uL (150-400); Red Blood Cell Count 4.45 X10^6/uL (4.5-5.9); Red Cell Distribution Width 13.7 % (11.6-14.8); White Blood Cell Count 9.4 X10^3/uL (4.5-11.0)
[2024-12-21 14:07] LABS: Alanine Aminotransferase 29 IU/L (<50); Albumin 4.4 g/dL (3.5-5.0); Albumin Globulin Ratio 1.8 (1.0-2.8); Alkaline Phosphatase 62 U/L (38-126); Aspartate Aminotransferase 39 IU/L (17-59); BUN Creatinine Ratio 21.2 (6-22); Bilirubin Total 0.7 mg/dL (0.2-1.3); Blood Urea Nitrogen 22 mg/dL (9-20); Calcium 9.8 mg/dL (8.4-10.2); Carbon Dioxide 29 mmol/L (22-32); Chloride 100 mmol/L (98-107); Estimated Glomerular Filt Rate > 60 mL/min (>60); Globulin 2.5 g/dL (1.7-4.1); Glucose 125 mg/dL (70-99); HEMOLYSIS < 15 (0-50); Potassium 3.7 mmol/L (3.4-5.1); Sodium 138 mmol/L (137-145); Total Protein 6.9 g/dL (6.3-8.2)
== END ==
PROVIDERS: PCP Family Medicine; Referring Provider Psychiatry & Neurology Neurology; Visit Provider Psychiatry & Neurology Neurology
DX: G70.00 Myasthenia gravis without (acute) exacerbation (principal); Z29.89 Encounter for other specified prophylactic measures
CPT/HCPCS: 36415; 80053; 85025

== ENCOUNTER → 2025-02-11 08:01 | Outpatient (CLI) | payer MEDICARE, OTHER, SELFPAY ==
--- NOTE | 2025-02-11 08:04 | DI.RAD.S_ITS ---
PROCEDURE: XR HIP W PEL IF DONE LT 2V INDICATIONS: lbp and hip pain TECHNIQUE: AP pelvis with lateral view(s) of the left hip(s). COMPARISON: None. FINDINGS: Bones: No fractures or dislocations. Pelvic ring appears intact. No suspicious bony lesions. Moderate lower lumbar spondylosis. Mild degenerative changes of the bilateral femoroacetabular joints. Soft tissues: The visualized bowel gas pattern is normal. No suspicious soft tissue calcifications. IMPRESSION: No acute bony abnormality. Mild bilateral femoroacetabular joint osteoarthrosis. Moderate lower lumbar spondylosis. If there are persistent symptoms or clinical suspicion for pathology, then repeat radiographs or advanced imaging (CT or MRI) may be considered for further evaluation. Dictated by: Javed Becker M.D. on 02/11/2025 at 9:44 Approved by: Javed Becker M.D. on 02/11/2025 at 9:46
--- NOTE | 2025-02-11 08:04 | DI.RAD.S_ITS ---
PROCEDURE: XR LUMBAR SPINE 2-3V INDICATIONS: lbp and hip pain TECHNIQUE: 3 views of the lumbar spine were acquired. COMPARISON: None. FINDINGS: Bones: 5 [id number] vertebrae are present. There is normal bony alignment. No acute vertebral body compression fractures. No suspicious bony lesions. Moderate-severe multilevel lumbar spondylosis with degenerative endplate changes, disc space loss, and endplate osteophyte formation. Suspected moderate bony neuroforaminal stenosis at L5-S1. Soft tissues: Overlying bowel gas pattern is normal. No suspicious soft tissue calcifications. IMPRESSION: Moderate-severe multilevel lumbar spondylosis most pronounced at L2-3, L3-4, and L5-S1. No acute osseous abnormality seen. Dictated by: Javed Becker M.D. on 02/11/2025 at 9:46 Approved by: Javed Becker M.D. on 02/11/2025 at 9:49
[2025-02-11 09:58] LABS: Cholesterol 185 mg/dL (140-199); Creatine Kinase 109 U/L (55-170); HDL Cholesterol 71 mg/dL (40-60); Triglycerides 97 mg/dL (35-150)
== END ==
PROVIDERS: PCP Family Medicine; Referring Provider Family Medicine; Visit Provider Family Medicine
DX: M25.552 Pain in left hip (principal); E78.00 Pure hypercholesterolemia, unspecified; M54.50 Low back pain, unspecified
CPT/HCPCS: 36415; 72100; 73502; 80061; 82550

== ENCOUNTER → 2025-05-13 11:12 | Outpatient (CLI) | payer MEDICARE, OTHER, SELFPAY ==
--- NOTE | 2025-05-13 11:13 | DI.MRI.S_ITS ---
PROCEDURE: MR LUMBAR SPINE WO CON INDICATIONS: lumbar radiculopathy TECHNIQUE: Noncontrast sagittal T1 spin echo and T2 fast echo, sagittal STIR, and T2 fast spin echo through the lumbar spine. In cases with scoliosis, additional coronal T2 fast spin echo may be performed. COMPARISON: [facility], MR, L-SPINE WITHOUT CONTRAST, 10/31/2014, 12:10. [facility], CR, XR LUMBAR SPINE 2-3V, 02/11/2025, 8:10. FINDINGS: Image quality: Excellent. Alignment and Curvature: There is normal bony alignment. Bone Marrow: Marrow is of normal overall signal. No acute vertebral body compression fractures. Spinal Cord: Conus medullaris terminates at the L1 level. Visualized cord demonstrates normal signal and size. Paraspinous Soft Tissues: No paravertebral masses. T12-L1: Normal appearance. L1-L2: Moderate loss of disc height is seen. Loss of disc signal is seen. Moderate disc bulge is seen, which is eccentric to the right. There is a superimposed central disc protrusion. Mild facet joint hypertrophy is seen. There is moderate right- sided and no left-sided neural foraminal narrowing. Mild central canal narrowing is seen. These imaging findings have progressed compared to the prior study. L2-L3: Moderate loss of disc height is seen. Loss of disc signal is seen. Reactive marrow endplate changes are seen, which are hyperintense on T1-weighted and T2- weighted imaging and most consistent with fatty metaplasia (Modic type II changes). Moderate disc bulge is seen, which is eccentric to the right. There is a superimposed central disc osteophyte protrusion. Mild facet joint hypertrophy is seen. There is moderate to severe right-sided neural foraminal narrowing, with a degree of compression upon the exiting right L2 nerve root. There is moderate left-sided neural foraminal narrowing. At least moderate central canal narrowing is seen, as on series 5, image 14. These degenerative changes are worse than in 2015. L3-L4: Moderate loss of disc height is seen. Loss of disc signal is seen. Moderate generalized disc bulge is seen. There is a central/right disc osteophyte protrusion seen. Mild facet joint hypertrophy is seen. Associated hypertrophy of the ligamentum flavum can be seen. [id number] bilateral neural foraminal narrowing is seen. Moderate to severe central canal narrowing is seen, which is exacerbated by prominent epidural fat. These degenerative changes are worse than in 2015. L4-L5: Moderate loss of disc height is seen. Loss of disc signal is seen. Moderate generalized disc bulge is seen. There is a central disc extrusion, with superior migration of the disc material. At least moderate facet hypertrophy is seen. Associated hypertrophy of the ligamentum flavum can be seen. At least moderate bilateral neural foraminal narrowing is seen. There is a degree of compression seen upon the exiting nerve roots. There is severe central canal narrowing, as on series 6, image 17. This is made worse by prominent epidural fat. These degenerative changes are worse than in 2015. L5-S1: The disc height is well-preserved. Loss of disc signal is seen at this level. Mild to moderate disc bulge is seen. There is a central/left disc protrusion. At least moderate facet hypertrophy is seen. There is moderate to severe bilateral neural foraminal narrowing, left worse than right. There is a degree of compression seen upon the exiting nerve roots. Moderate central canal narrowing is seen. These imaging findings have progressed compared to the prior study. IMPRESSION: Multiple levels of significant lower lumbar spine degenerative change can be seen, which are progressed compared to 2015. There is moderate to severe central canal narrowing at L3-L4 and severe central canal narrowing at L4-L5. Several sites of significant neural foraminal narrowing can be seen, with associated exiting nerve root compression. Dictated by: Fawad Godinez M.D. on 05/13/2025 at 12:39 Approved by: Fawad Godinez M.D. on 05/13/2025 at 12:45
== END ==
PROVIDERS: PCP Family Medicine; Referring Provider Family Medicine; Visit Provider Family Medicine
DX: M48.061 Spinal stenosis, lumbar region without neurogenic claudication (principal); M48.07 Spinal stenosis, lumbosacral region; M51.16 Intervertebral disc disorders with radiculopathy, lumbar region; M51.17 Intervertebral disc disorders with radiculopathy, lumbosacral region; M47.26 Other spondylosis with radiculopathy, lumbar region; M47.27 Other spondylosis with radiculopathy, lumbosacral region
CPT/HCPCS: 72148

== ENCOUNTER → 2025-06-21 07:44 | Outpatient (CLI) | payer MEDICARE, OTHER, SELFPAY ==
[2025-06-21 08:25] LABS: Add Manual Diff / Slide Review NO; Hematocrit 39.1 % (41-53); Hemoglobin 13.2 g/dL (13.5-17.5); Lymphocytes Absolute Auto 1300 /uL (1100-4500); Mean Corpuscular HGB Conc 33.8 % (30-36); Mean Corpuscular Hemoglobin 30.1 PG (26-34); Mean Corpuscular Volume 89.3 fL (80-100); Platelet Count 256 X10^3/uL (150-400)
[2025-06-21 08:54] LABS: Alanine Aminotransferase 18 IU/L (<50); Albumin 4.2 g/dL (3.5-5.0); Albumin Globulin Ratio 1.5 (1.0-2.8); Alkaline Phosphatase 57 U/L (38-126); Blood Urea Nitrogen 18 mg/dL (9-20); Calcium 9.9 mg/dL (8.4-10.2); Carbon Dioxide 32 mmol/L (22-32); Chloride 101 mmol/L (98-107); Estimated Glomerular Filt Rate > 60 mL/min (>60); Globulin 2.8 g/dL (1.7-4.1); Glucose 85 mg/dL (70-99); HEMOLYSIS < 15 (0-50); Potassium 4.1 mmol/L (3.4-5.1); Sodium 139 mmol/L (137-145); Total Protein 7.0 g/dL (6.3-8.2)
== END ==
PROVIDERS: PCP Family Medicine; Referring Provider Family Medicine; Visit Provider Psychiatry & Neurology Neurology
DX: Z29.89 Encounter for other specified prophylactic measures (principal); G70.00 Myasthenia gravis without (acute) exacerbation
CPT/HCPCS: 36415; 80053; 85025

== ENCOUNTER 2025-06-29 12:54 | Outpatient (CLI) | payer MEDICARE, OTHER, SELFPAY ==
[2025-06-29 13:00] VITALS: BP 142/68; PULSE 97; RESP 18; TEMP 36.6; O2SAT 95
[2025-06-29 13:23] VITALS: BP 161/75; PULSE 93; RESP 78; O2SAT 97
[2025-06-29] MEDS: LIDOCAINE 1% (PF) 5 ML 10 ML INJ (13:27)
[2025-06-29 13:35] VITALS: BP 138/70; PULSE 88; RESP 18; O2SAT 97
--- NOTE | 2025-06-29 15:56 | P.PCN_ITS ---
Date/Time/Diagnoses Date of procedure: 06/29/25 Time of procedure: 01:00 Pre-procedure diagnosis: Lumbosacral radiculopathy Post-procedure diagnosis: same Procedure Notes Procedure: Interlaminar epidural steroid injection L5-S1 Indications: Lumbosacral radiculopathy Physician: Travis Leyva Total sedation minutes: 0 Complications: none Procedure in detail & Post-procedure care: Patient is here for the planned procedure today as noted. No significant change since the last office visit. For additional clinical scenario please see those office notes. Focused exam: Vital signs reviewed as charted on intake. Gen: Well developed. No acute distress. CV: RRR, no M/R/G Chest: Non-labored breathing, CTAB. Psych: Alert and well-oriented. Mood/Affect: normal. Patient suitable for the planned procedure today: Yes === The following procedure was performed in the office today: Lumbar Epidural Steroid Injection with fluoroscopic guidance - Interlaminar approach (60417) Levels Treated: [L5-S1] Approach: interlaminar Soft tissue: [1% lidocaine 2 mL] Test dose: [1% lidocaine 1 mL] Injectate: 0.75 mL of Depo-Medrol (80mg/mL) in 1.25 mL 1% lidocaine and 1 mL normal saline Fluoroscopy Agent: Isovue 300-M 1.5 mL Notes: 3.5 in 20 gauge Touhy needle utilized and adequate. Left paramedian approach. Preprocedure pain 5/10, postprocedure pain 3/10. Procedure: After discussing the risks, benefits, and alternatives to the procedure, the patient expressed understanding and wished to proceed. The risks include but are not limited to infection, allergic reaction, nerve damage, stroke, paralysis, epidural hematoma, syncope, headache, respiratory or cardiac arrest, spinal cord injury, and scar formation. Informed consent was obtained and all patient questions were answered. The patient was brought to the procedure suite and placed in the prone position. A pre-procedural pause was conducted to verify: correct patient identity, procedure to be performed and as applicable, correct side and site, correct patient position, and any special requirements. Using a paramedian approach from the side noted above, the region overlying the target was localized under fluoroscopic visualization and the soft tissues overl andrei this structure were infiltrated with the anesthetic listed above. With fluoroscopic guidance, a #20 gauge Tuohy needle (unless otherwise noted) was inserted into the epidural space using a paramedian approach. The epidural space was localized utilizing intermittent multiplanar fluoroscopic guidance and loss of resistance technique. After negative aspiration, the contrast noted above was injected into the epidural space and the flow of contrast was observed, confirming epidural spread without evidence of intravascular or intrathecal spread. Multi-planar radiographs were obtained for documentation purposes. A test dose of lidocaine was injected into the above noted epidural space, and the patient was observed for 30-60 seconds. No sensory deficits were reported and normal lower extremity motor function was noted. Subsequently, the injectate as noted above was administered into the level noted above. The patient tolerated the procedure well and was discharged after an appropriate period of observation. If there are any complications, the patient was instructed to call us. The patient is to follow-up with the requesting provider in 2-3 weeks. This note was compiled using voice recognition software and therefore may contain typos. Please contact the author with any questions or concerns.
== END 2025-06-29 13:45 | disposition home or self-care (01) ==
LOC: RAD 12:56
PROVIDERS: PCP Family Medicine; Referring Provider Physical Medicine & Rehabilitation; Visit Provider Physical Medicine & Rehabilitation
DX: M54.17 Radiculopathy, lumbosacral region (principal)
CPT/HCPCS: 62323; J1010